=== PATIENT | male | born 1985 | race Caucasian/White ===

== ENCOUNTER 2016-05-30 13:50 | Inpatient (IN) | payer OTHER ==
[~2016-05-30 13:50] MED LIST: NALOXONE HCL 2 MG/2 ML SYR IVP ONE
--- NOTE | 2016-05-30 14:06 | EDPHY ---
HPI/HX/ROS/PE/MDM Narrative: CHIEF COMPLAINT: Cardiac arrest HPI: The patient is an estimated 31 y/o male arriving via EMS in cardiac arrest after he was found down by his roommates. Roommates told EMS they did not know how long he was down for and suspect possible cocaine or heroin use. They confirmed he used cocaine last night. No other history is known. He was apneic and pulseless on scene. EMS initiated CPR, intubated, and administered 3 rounds of epinephrine and 2mg IO Narcan en route. No change in patient condition during transport. REVIEW OF SYSTEMS: Unobtainable due to patient condition PMH: Anxiety SOCIAL HISTORY: Drug abuse. Lives in [place]. Prior medical records reviewed including multiple urgent care visits over the last 2 years. PHYSICAL EXAM: General:Patient is unconscious, GCS 3, CPR in progress. ENT:Pupils are fixed and dilated. ET tube in place. No visible trauma Neck: Normal inspection. C-collar in place. Respiratory: Breath sounds present bilaterally with assisted ventilation. Cardiovascular: Initially pulseless, then palpable femoral pulses in 20s, then 70s. Abdomen:No visible trauma Back: deferred Skin: Dooley face. No rash. Warm and dry. Extremities: Normal appearance. Neuro: GCS 3. ED Course: 1350: Met EMS in ambulance bay and took report. Patient was found down by roommate for unknown down time with suspected cocaine and/or heroin use. Arrives with CPR in progress. EMS intubated and administered 3 rounds epinephrine, 2mg Narcan. 1351: Pupils fixed and dilated. slow femoral pulse palpable, disorganized rhythm on monitor 1352: irregular HR 76. EKG, chest x-ray, cardiac meds ordered. 1353: Left tibial IO placed. Bicarb administered. Cardiac ultrasound in progress. Continues to have good femoral pulse. 1354: 2mg IV Narcan, and 1mg IV Atropine administered. 1355: No pericardial effusion, possible RV dilation on bedside US. Echo ordered , however they will be delayed as they are not in-house on the weekends. 1357: The 12 lead EKG was interpreted by myself. Irregular rhythm rate 77, ST depression in anterior and lateral leads likely ischemic. See hard copy and/or "tracemaster" electronic copy for interpretation. 1358: Automatic BP 55/30, 39%, HR 75. Good breath sounds bilaterally with current tube placement. RT is adjusting tube. 18g peripheral IV placed right AC. 1400: Manual BP is 68/palp. 1402: Chest x-ray shows tube in high position. RT will advance tube. Radiologist read reports 10cm above cindy. Study: Chest x-ray Indication: Cardiac arrest, intubation Results: Chest x-ray was obtained. The results of the study are 1. High positioned ET tube. Recommend repositioning. Comment: The results were immediately called to the Emergency marking clerk. He plans to convey results to Dr. Cori conte. 2. Right upper lobe aspiration versus contusion versus asymmetric pulmonary edema. The study was read by the radiologist, Dr. Klein. I viewed the images myself on the PACS system. 1403: Pupils remained fixed and dilated. 1405: Pulse briefly dropped to 40s. 1mg epinephrine administered. Plan for IV dopamine drip, SpO2 64%, CO2 38, BP 89/45. Patient has received 1L IV NS so far. 2L pending. 1407: Consulted Dr. Alejandro, patient registration supervisor. 1410: NG tube in progress. 1417: Repeat chest x-ray to review new tube placement. Study: Chest x-ray Indication: Cardiac arrest, intubation Results: Chest x-ray was obtained. The results of the study are 1. Repositioned ET tube is now in good position. 2. Well-positioned esophagogastric tube. 3. Right upper lobe aspiration versus asymmetric pulmonary edema is unchanged. The study was read by the radiologist, Dr. Klein. I viewed the images myself on the PACS system. 1417: BP 46/24, SpO2 86%, HR 75. Femoral pulse remains strong. 2nd amp bicarb ordered. 1419: IV Levophed and bicarb administered. Blood gas ordered. 1425: BP 52/28, HR 80, SpO2 84%. 1426: The 12 lead EKG was interpreted by myself. See hard copy and/or "tracemaster" electronic copy for interpretation. 1427: Echo at bedside. 1428: Core temp off urine is 30.6C. Levophed dose increased. 1430: BP 63/29, SpO2 89%, HR 82 1431: Dr. Cartwright, aircraft landing gear inspector, at bedside. 1445: Dr. Polo, hospitalist at bedside. BP 76/37, SpO2 96%, HR 84. Dr. Polo requests central access prior to moving him upstairs. Plan for ThermaGuard so we can warm patient to appropriate temperature for HACA protocol. 1458: Several abnormal lab values. ABGpH is low at 6.73 and pCO2 elevated at 83. 1510: BP 95/46. 1510: Procedure: Ultrasound guided central line. Indication: post resuscitation, hypothermic, HACA protocol. Using the linear probe covered in a sterile sheath, a short axis of the right femoral vein was obtained. The vein was completely compressible and was identified as separate from the adjacent non-compressible arterial structure. Under real-time guidance, the introducer needle was observed up to the vein, and then punctured it. Pictures are apart of the database. Consent implied due to patient condition. A timeout was observed. Full maximal sterile barrier technique was used including cap, gown, sterile gloves, large sheet, hand washing and chlorhexidine prep. The area was anesthetized with 1% lidocaine. A 9 Gabonese triple lumen ThermaGuard was placed in the right femoral vein using standard Seldinger technique. There were no complications. Blood return low pressure, dark blood. Patient tolerated procedure well. The procedure was performed by myself, Dr. Miller. 1540: BGL 44, 25g IV D50 administered. ECHOCARDIOGRAPHY: Indication: chest pain,SOB Procedure: Limited transthoracic 2D echocardiogram. A limited transthoracic echocardiogram was performed by the echocardiogram technologists and interpreted by ___. Limited transthoracic echocardiogram: The pericardium was visualized and found to be negative for pericardial fluid. Cardiac activity and EF was normal. No obvious structural or valve abnormalities. Impression: I spent a total of 100 minutes of critical care time including but not limited to obtaining history, performing a physical exam, ordering interventions and the bedside monitoring of those interventions, collecting and interpreting tests and discussion with consultants but not including time spent performing procedures. MDM: This patient presents status post cardiac arrest with evidence of severe brain anoxia, hypotension, and hypothermia. The underlying etiology is presumably drug overdose although this cannot be confirmed at this time.He will be admitted to the care of Dr. Polo and Dr. Cartwright. - Data Points Laboratory Results: Laboratory Results 05/30/16 14:00 05/30/16 14:00 05/30/16 05/30/16 05/30/16 14:28 14:00 14:00 WBC RBC Hgb POC Hgb Hct POC Hct MCV MCH MCHC RDW Plt Count MPV Neut % (Auto) Lymph % (Auto) Runnels % (Auto) Eos % (Auto) Baso % (Auto) Nucleat RBC Rel Count Absolute Neuts (auto) Absolute Lymphs (auto) Absolute Monos (auto) Absolute Eos (auto) Absolute Basos (auto) Absolute Nucleated RBC Immature Gran % Seg Neutrophils % Band Neutrophils % Lymphocytes % Monocytes % Metamyelocytes % Immature Gran # Absolute Seg Neuts Absolute Band Neuts Absolute Lymphocytes Absolute Monocytes Absolute Metamyelocyte RBC/WBC/PLT Morphology Atypical Lymphocytes Platelet Estimate Smear Review By PT 17.3 SEC H SEC (12.0-15.0) INR 1.42 H (0.83-1.16) APTT 41.1 SEC H SEC (23.0-38.0) Puncture Site RIGHT RADIAL Patient Temperature 31.6 DEGREES DEGREES pCO2 83 mmHg H* mmHg (34-38) pO2 53 mmHg L mmHg (65-75) Total CO2 15 mEq/L L mEq/L (23-27) ABG pH 6.73 L* (7.35-7.45) ABG PO2/FiO2 Ratio 53 RATIO RATIO ABG O2 Saturation 79 % L % (92-95) ABG Base Excess -28.6 mEq/L L mEq/L (-2.5-2.5) O2 Concentration % 100 % % (0-100) Respiration Rate 18 Set Respiration Rate 18 Assist Control YES Tidal Volume 700 PEEP 10 POC Sodium Sodium 149 mEq/L H mEq/L (134-144) POC Potassium Potassium 5.9 mEq/L H mEq/L (3.5-5.2) POC Chloride Chloride 102 mEq/L mEq/L (97-110) Carbon Dioxide 17 mEq/l L mEq/l (22-31) Bicarbonate 12 mEq/L L mEq/L (22-26) Anion Gap 30 mEq/L H mEq/L (8-16) POC BUN BUN 17 mg/dL mg/dL (7-23) Creatinine 2.7 mg/dL H mg/dL (0.7-1.3) POC Creatinine Estimated GFR 28 Glucose 44 mg/dL L mg/dL (70-100) POC Glucose Calcium 9.0 mg/dL mg/dL (8.5-10.4) Creatine Kinase 108 IU/L IU/L (0-224) Troponin I 0.222 ng/mL H ng/mL (0-0.034) 05/30/16 05/30/16 14:00 13:52 WBC 22.67 10^3/uL H 10^3/uL (3.80-9.50) RBC 4.94 10^6/uL 10^6/uL (4.40-6.38) Hgb 15.1 g/dL g/dL (13.7-17.5) POC Hgb 16.0 gm/dL gm/dL (14.5-17.3) Hct 50.4 % % (40.0-51.0) POC Hct 47 % % (42.8-50.6) MCV 102.0 fL H fL (81.5-99.8) MCH 30.6 pg pg (27.9-34.1) MCHC 30.0 g/dL L g/dL (32.4-36.7) RDW 13.1 % % (11.5-15.2) Plt Count 355 10^3/uL 10^3/uL (150-400) MPV 11.2 fL fL (8.7-11.7) Neut % (Auto) Not Reported Lymph % (Auto) Not Reported Runnels % (Auto) Not Reported Eos % (Auto) Not Reported Baso % (Auto) Not Reported Nucleat RBC Rel Count 0.1 % % (0.0-0.2) Absolute Neuts (auto) Not Reported Absolute Lymphs (auto) Not Reported Absolute Monos (auto) Not Reported Absolute Eos (auto) Not Reported Absolute Basos (auto) Not Reported Absolute Nucleated RBC 0.02 10^3/uL H 10^3/uL (0-0.01) Immature Gran % Not Reported Seg Neutrophils % 35 % % Band Neutrophils % 22 % % Lymphocytes % 24 % % Monocytes % 10 % % Metamyelocytes % 9 % % Immature Gran # Not Reported Absolute Seg Neuts 7.93 10^/uL H 10^/uL (1.70-6.50) Absolute Band Neuts 4.99 10^3/uL H 10^3/uL (0.00-0.70) Absolute Lymphocytes 5.44 10^3/uL H 10^3/uL (1.00-3.00) Absolute Monocytes 2.27 10^3/uL H 10^3/uL (0.30-0.80) Absolute Metamyelocyte 2.04 10^3/mL H 10^3/mL (0.00-0.00) RBC/WBC/PLT Morphology NORMAL (NORMAL) Atypical Lymphocytes 1+ H Platelet Estimate ADEQUATE (ADEQ) Smear Review By Pending PT INR APTT Puncture Site Patient Temperature pCO2 pO2 Total CO2 ABG pH ABG PO2/FiO2 Ratio ABG O2 Saturation ABG Base Excess O2 Concentration % Respiration Rate Set Respiration Rate Assist Control Tidal Volume PEEP POC Sodium 145 mEq/L H mEq/L (134-144) Sodium POC Potassium 6.0 mEq/L H mEq/L (3.3-5.0) Potassium POC Chloride 106 mEq/L mEq/L (96-108) Chloride Carbon Dioxide Bicarbonate Anion Gap POC BUN 29 mg/dL H mg/dL (7-23) BUN Creatinine POC Creatinine 2.2 mg/dL H mg/dL (0.8-1.5) Estimated GFR Glucose POC Glucose 62 mg/dL L mg/dL (70-100) Calcium Creatine Kinase Troponin I Medications Given: Discontinued Medications Atropine Sulfate (Atropine 1 Mg/10 Ml Syringe) 1 mg IVP EDNOW ONE Stop: 05/30/16 14:30 Last Admin: 05/30/16 13:54 Dose: 1 mg Epinephrine HCl (Epinephrine) 1 mg IVP EDNOW ONE Stop: 05/30/16 14:30 Last Admin: 05/30/16 14:05 Dose: 1 mg Norepinephrine 4 mg/ Dextrose 500 mls @ 0 mls/hr IV ONCE ONE; Per Protocol PRN Reason: Protocol Stop: 05/30/16 14:31 Last Admin: 05/30/16 14:18 Dose: 500 mls Dopamine HCl/Dextrose (Dopamine 1600 Mcg/Ml (Premix)) 250 mls @ 0 mls/hr IV EDNOW ONE; Titrate PRN Reason: Protocol Stop: 05/30/16 14:25 Last Admin: 05/30/16 14:11 Dose: 250 mls Naloxone HCl (Narcan) 2 mg IVP EDNOW ONE Stop: 05/30/16 14:43 Last Admin: 05/30/16 13:54 Dose: 2 mg Sodium Bicarbonate (Sodium Bicarbonate) 50 meq IVP EDNOW ONE Stop: 05/30/16 14:29 Last Admin: 05/30/16 13:54 Dose: 50 meq Sodium Bicarbonate (Sodium Bicarbonate) 50 meq IVP ONCE ONE Stop: 05/30/16 14:30 Last Admin: 05/30/16 14:18 Dose: 50 meq Point of Care Test Results: 05/30/16 13:52 POC Sodium 145 H POC Potassium 6.0 H POC Chloride 106 POC BUN 29 H POC Creatinine 2.2 H POC Glucose 62 L General Initial Vital Signs: Initial Vital Signs Heart Rate 0 L 05/30/16 13:50 Respiratory Rate 20 05/30/16 13:50 O2 Sat (%) 30 L 05/30/16 13:50 O2 Delivery Mode Ventilator O2 (L/minute) 100 Allergies/Adverse Reactions: No Known Allergies Allergy (Verified 05/25/15 09:08) Home Medications: Medication Instructions Recorded Unobtainable 05/30/16 Departure - Departure Disposition: [facility] Inpatient Acute Clinical Impression: Cardiac arrest Condition: Critical Report Scribed for: Nick Miller Report Scribed by: Zahraa Solares Date of Report: 05/30/16 Time of Report: 13:47 Physician Review and Approval Statement: Portions of this note were transcribed by an ED scribe. I personally performed the history, physical exam, and medical decision making; and confirm the accuracy of the information in the transcribed note.
[2016-05-30] MEDS ORDERED: SODIUM BICARBONATE 50 MEQ/50 ML SYR IVP ONE ×3 (14:28→19:56)
[2016-05-30] MEDS ORDERED: ATROPINE SULFATE 1 MG/10 ML SYR IVP ONE (14:29)
[2016-05-30] MEDS ORDERED: EPINEPHrine 1 MG/10 ML SYR IVP ONE (14:29)
[2016-05-30] MEDS ORDERED: NALOXONE HCL 2 MG in D5W 500 ML IV SCH (14:30)
[2016-05-30] MEDS ORDERED: NOREPINEPHRINE BITARTRATE 4 MG in D5W 500 ML IV ONE (14:30)
[2016-05-30 14:32] LABS: ABSOLUTE NRBC COUNT 0.02 10^3/uL (0-0.01); ADD DIFF? YES; ADD MORPH? NO; ADD SCAN? YES; FRAGMENT RBC FLAG 0 (0-99); HEMATOCRIT 50.4 % (40.0-51.0); HEMOGLOBIN 15.1 g/dL (13.7-17.5); LEFT SHIFT FLG 50 (0-99); LIPEMIA HEMOLYSIS FLAG 80 (0-99); MEAN CELL HEMOGLOBIN 30.6 pg (27.9-34.1); MEAN PLATELET VOLUME 11.2 fL (8.7-11.7); NRBC-AUTO% 0.1 % (0.0-0.2); PLATELET CLUMPS FLAG 20 (0-99); PLATELET COUNT 355 10^3/uL (150-400); RED BLOOD CELL COUNT 4.94 10^6/uL (4.40-6.38); RED CELL DISTRIBUTION WIDTH 13.1 % (11.5-15.2)
[2016-05-30 14:33] LABS: ATYPICAL LYMPHOCYTE FLAG 120 (0-99)
[2016-05-30 14:42] LABS: INR 1.42 (0.83-1.16); PROTIME(PATIENT) 17.3 SEC (12.0-15.0)
[2016-05-30] MEDS ORDERED: NALOXONE HCL 0.4 MG/ML INJ IVP ONE (14:42)
[2016-05-30 14:43] LABS: APTT 41.1 SEC (23.0-38.0)
[2016-05-30 14:47] LABS: BASE EXCESS -28.6 mEq/L (-2.5-2.5); BICARBONATE 12 mEq/L (22-26); MEASURED OXYGEN SATURATION 79 % (92-95); PO2 53 mmHg (65-75); TCO2 15 mEq/L (23-27)
[2016-05-30 14:50] LABS: PCO2 83 mmHg (34-38)
[2016-05-30 14:51] LABS: ASSIST CONTROL YES; O2 CONCENTRATIION 100 % (0-100); P/F RATIO 53 RATIO; TOTAL RATE 18
[2016-05-30 14:58] LABS: ANION GAP 30 mEq/L (8-16); CARBON DIOXIDE 17 mEq/l (22-31); CHLORIDE 102 mEq/L (97-110); CREATININE 2.7 mg/dL (0.7-1.3); GLOMERULAR FILTRATION RATE 28; GLUCOSE 44 mg/dL (70-100); POTASSIUM 5.9 mEq/L (3.5-5.2); SODIUM 149 mEq/L (134-144)
[2016-05-30 15:00] LABS: SCAN POSITIVE
[2016-05-30] MEDS ORDERED: ONDANSETRON 4 MG/2 ML VIAL IVP PRN (15:02)
[2016-05-30 15:03] LABS: PLATELET ESTIMATE ADEQUATE (ADEQ)
[2016-05-30 15:04] LABS: TROPONIN I 0.222 ng/mL (0-0.034)
[2016-05-30] MEDS ORDERED: NS 1,000 ML IV ONE ×4 (15:25→16:20)
[2016-05-30 15:42] LABS: BASE EXCESS -23.4 mEq/L (-2.5-2.5); BICARBONATE 10 mEq/L (22-26); MEASURED OXYGEN SATURATION 98 % (92-95); PCO2 36 mmHg (34-38); PO2 173 mmHg (65-75); TCO2 11 mEq/L (23-27)
[2016-05-30 15:48] LABS: ASSIST CONTROL YES
[2016-05-30 15:50] LABS: O2 CONCENTRATIION 100 % (0-100); P/F RATIO 173 RATIO
[2016-05-30 15:51] LABS: TOTAL RATE 26
--- NOTE | 2016-05-30 16:05 | GCON ---
[f rep st] CONSULTATION SECURITY INCIDENT RESPONSE SPECIALIST CONSULTATION REASON FOR ADMISSION: Found down, cardiac arrest. HISTORY OF PRESENT ILLNESS: The patient is a 30-year-old male with a past medical history of known heroin drug abuse. He was found by his roommate after being down for an unknown amount of time. No other history was known. On the scene, when EMS arrived, he was pulseless and apneic. CPR was beg un and he was subsequently intubated and was given epi and Narcan in route. He was subsequently res uscitated, though he is markedly hypotensive. He is in a coma. No other history is available at this time. PAST MEDICAL HISTORY: Unknown. PAST SURGICAL HISTORY: Unknown. ALLERGIES: Unknown. SOCIAL HISTORY: Other than heroin use and possible cocaine use, no other history is available. PHYSICAL EXAM: VITAL SIGNS: Blood pressure is 82/40, pulse of 75, respirations are 16. GENERAL: He is a well-developed, well-nourished, 30-year-old white male, who is obtunded, on mechanical venti lation. HEENT: Pupils are fixed and dilated. Throat: Endotracheal tube is in good position. NEC K: Supple. No cervical adenopathy. HEART: Regular rate and rhythm without murmurs, rubs, gallops . LUNGS: Reveal a few bibasilar crackles, but no wheeze. ABDOMEN: Soft, nontender. Bowel sounds present in all 4 quadrants. EXTREMITIES: No clubbing, cyanosis, or edema. LABORATORIES: Hemoglobin 16, hematocrit 47. INR 1.42. Sodium 145, potassium 6.0, chloride 106, CO 2 is pending, BUN 29, creatinine 2.2, glucose is 62. Chest x-ray shows endotracheal tube is a littl e high, there is a right upper lobe infiltrate, likely aspiration. IMPRESSION: 1. Status post cardiac arrest. 2. Known heroin abuse. 3. Coma. 4. Right upper lobe pneumonia, likely aspiration. 5. Shock. 6. Acute renal failure. 7. Incomplete database. RECOMMENDATIONS: 1. The patient will be admitted to the intensive care unit. 2. We will continue mechanical ventilation. 3. We will start per protocol. 4. Aggressive hydration, as well as IV pressors. 5. We will start antibiotics. 6. DVT and PE prophylaxis. 7. Stress ulcer prophylaxis. 8. Prognosis is grim for meaningful recovery. /[id number]/MODL
--- NOTE | 2016-05-30 16:09 | GHP ---
[f rep st] HISTORY AND PHYSICAL DATE OF ADMISSION: 05/30/2016 HISTORY OF PRESENT ILLNESS: The patient is a 30-year-old gentleman with a history of heroin use who was found down by his roommates today. He had been down for an unknown period of time. He was not breathing. 911 was called. CPR was initiated. He was apneic and pulseless. It sounds like it wa s EMS who initiated CPR and they intubated him. He had 3 rounds of epinephrine and 2 mg intraosseou s Narcan en route. There were no changes in the patient's condition during transport. History conf irms that he used cocaine last evening. In the emergency department he is unresponsive despite no sedation and intubation and further histor y is unknown. REVIEW OF SYSTEMS: Complete 10-point review of systems is unable to be conducted given his unrespon sive status. PAST MEDICAL HISTORY: Drug abuse, otherwise unknown. ALLERGIES: No known drug allergies, unknown. HOME MEDICATIONS: Unknown. FAMILY HISTORY: Unknown. PHYSICAL EXAM: VITAL SIGNS: Temp 31.6, blood pressure 78/39, pulse 84, breathing 20 times a minute , 97% on 100% FiO2. GENERAL: He is intubated, unresponsive. HEENT: Pupils are fixed at about 5 m m and dilated. Sclerae are anicteric. His oropharynx has an ET tube in. NECK: Supple. LUNGS: C lear with auscultation anterolaterally. There are some rhonchi in the right upper lobe. HEART: S1 , S2, irregularly irregular. ABDOMEN: Soft. There is no rebound or guarding. Bowel sounds are no rmal. LOWER EXTREMITIES: Without edema. Calves are nontender. SKIN: Multiple tattoos, but no ra shes. NEUROLOGIC: Notable for an unresponsive patient with fixed and dilated pupils. LABS: PH of 6.7 with a pCO2 of 83, a PO2 of 53 and a bicarb of 15. Point of care hematocrit is 47. INR is 1.4. Sodium is 149, potassium 5.9, chloride 102, bicarb 17, BUN 17, creatinine 2.7, glucos e of 44. Troponin 0.22. EKG interpreted by me, there are 2, one done at 1:57 p.m. shows atrial fib rillation with ST depressions in the inferior leads as well as across the precordium and PVCs. Ther e are no J waves. A repeat EKG shows atrial fibrillation at 82 with normal axis. There are inferio r ST depressions in lead II, III, and F as well as lead V5, V6. Again, no J waves. Discussed the case with Dr. Elmo Miller, Dr. Yusef Cartwright. Admission chest x-ray shows right upper lobe aspiration. ASSESSMENT AND PLAN: A 30-year-old gentleman found down with likely heroin overdose and presentatio n concerning for severe anoxic brain injury. 1. Acidosis: This is a combined respiratory and metabolic acidosis. He is intubated. We will rep eat an ABG here in the coming minutes to assess the impression on his pCO2. I would expect his meta bolic acidosis to slightly improve and his respiratory acidosis to markedly improve with mechanical ventilation and resuscitation. 2. Question sepsis: I suspect the driving issue here is hypoventilation from narcotic overdose plu s the sepsis. He does have markers consistent with this fluid bolus, etcetera. 3. Right upper lobe aspiration: Started on Zosyn. 4. Anoxic brain injury: The patient is hypothermic. We will allow him to warm slowly. It is not clear that he is eligible for the hypothermia after cardiac arrest (HACA) protocol on the basis of h is presentation with hypothermia. We will allow him to warm to ambient temperature. 5. Prophylaxis: The patient is moderate to high risk. I will do use SCDs for now. His NG tube carver s what appears to be some blood in it. Will follow. 6. Question pulmonary embolism: He has inferior ST depressions that could be consistent with pulmo nary embolism. Right now he has acute kidney injury. We will hold off on systemic anticoagulation and follow. We will wait for an echocardiogram. 7. Acute kidney injury: I suspect this is secondary to poor p.o. intake. We will follow. I suspe ct this will improve with resuscitation. Will repeat labs today. 8. Hypotension: This is likely secondary to severe acidosis. Will follow. He is currently on pre ssors. 9. Code. He is full. 10. Contact: We have no family at this point in time. Will do our best to get in touch with them. 11. Disposition: ICU. /[id number]/MODL
[2016-05-30] MEDS: LORazepam 2 MG/ML INJ IVP PRN (16:18)
[2016-05-30] MEDS ORDERED: NS 1,000 ML IV SCH (16:20)
[2016-05-30] MEDS ORDERED: D50W 25 GM/50 ML SYR IVP ONE ×2 (16:20→19:56)
[2016-05-30] MEDS ORDERED: NS 250 ML IV PRN (16:20)
[2016-05-30] MEDS ORDERED: fentaNYL 100 MCG/2 ML INJ IVP ONE (16:20)
[2016-05-30] MEDS ORDERED: PROTOCOL MAGNESIUM 1 DOSE IV PRN (16:20)
[2016-05-30] MEDS ORDERED: PROPOFOL/EMULSION 50 ML IV SCH (16:20)
[2016-05-30] MEDS ORDERED: niCARdipine/NACL 200 ML IV PRN (16:20)
[2016-05-30] MEDS ORDERED: USE *INSINTENS FOR HYPOGLYCEMIA ORDERS MISC ONE (16:20)
[2016-05-30] MEDS ORDERED: NARCOTIC DRIP BAG-TOTAL ALL TYPES IV PRN (16:20)
[2016-05-30] MEDS ORDERED: MIDAZOLAM 2 MG/2 ML VIAL IVP PRN (16:20)
[2016-05-30] MEDS ORDERED: PROTOCOL POTASSIUM 1 DOSE MISC PRN (16:20)
[2016-05-30] MEDS: levETIRAcetam 500 MG in NS 100 ML IV SCH (16:33)
[2016-05-30] MEDS: PROPOFOL/EMULSION 100 ML IV SCH (16:37)
[2016-05-30] MEDS: fentaNYL/NACL 100 ML IV SCH (17:16)
[2016-05-30] MEDS: VECURONIUM BROMIDE 50 MG in D5W 50 ML IV SCH (17:40)
[2016-05-30] MEDS: PIPERACILLIN/TAZO 3.375 GM/DEX 50 ML IV SCH (18:46)
[2016-05-30 19:46] LABS: ANION GAP 15 mEq/L (8-16); CALCIUM 6.4 mg/dL (8.5-10.4); CARBON DIOXIDE 16 mEq/l (22-31); CHLORIDE 107 mEq/L (97-110); CREATININE 2.2 mg/dL (0.7-1.3); GLOMERULAR FILTRATION RATE 36; GLUCOSE 158 mg/dL (70-100); SODIUM 138 mEq/L (134-144)
[2016-05-30 19:50] LABS: POTASSIUM 6.5 mEq/L (3.5-5.2)
[2016-05-30] MEDS ORDERED: CALCIUM CHLORIDE 1 GM/10 ML INJ IV ONE (19:56)
[2016-05-30] MEDS ORDERED: D25W 2.5 GM/10 ML SYR IVP ONE (19:56)
[2016-05-30] MEDS ORDERED: SODIUM BICARBONATE 50 MEQ/50 ML SYR ONE (19:56)
[2016-05-30] MEDS ORDERED: DOPamine/DEXTROSE/250 ML BAG IV ONE (19:56)
--- NOTE | 2016-05-30 20:02 | SOAPPROG ---
SOAP Progress Note Assessment/Plan: Assessment: I was asked to place an arterial line. CHD sterile prep. Left femoral artery id with ultrasound. 20g arterial line placed easily, sutured in place. Sterile dressing applied. No complications Plan: 05/30/16 20:00 Subjective: .. Objective: Vital Signs Temp Pulse Resp BP Pulse Ox 33.1 C L 8 L 24 H 90/15 L 97 05/30/16 18:00 05/30/16 18:00 05/30/16 18:00 05/30/16 18:00 05/30/16 18:00 Laboratory Results 05/30/16 19:20 05/29/16 05/30/16 05/31/16 05:59 05:59 05:59 Intake Total 5272.6 Output Total 540 Balance 4732.6 PT 17.3 SEC (12.0-15.0) H 05/30/16 14:00 INR 1.42 (0.83-1.16) H 05/30/16 14:00 ICD10 Worksheet Patient Problems: Problems Problem Status Onset Cardiac arrest Acute
[2016-05-30] MEDS ORDERED: D50W 25 GM/50 ML SYR IVP PRN (20:03)
[2016-05-30 20:16] LABS: ASSIST CONTROL YES; BASE EXCESS -12.1 mEq/L (-2.5-2.5); BICARBONATE 14 mEq/L (22-26); MEASURED OXYGEN SATURATION 91 % (92-95); PCO2 27 mmHg (34-38); PO2 51 mmHg (65-75); TCO2 15 mEq/L (23-27)
[2016-05-30 20:17] LABS: END TIDAL CO2 22; O2 CONCENTRATIION 60 % (0-100); P/F RATIO 85 RATIO; TOTAL RATE 24
[2016-05-30] MEDS: PANTOPRAZOLE SODIUM 40 MG in NS 100 ML IV SCH (20:29)
[2016-05-30] MEDS: CHLORHEXIDINE GLUCONATE 15 ML UDL PO SCH (20:29)
[2016-05-30] MEDS ORDERED: INSULIN REGULAR HUMAN 100 UNIT in NS 100 ML IV SCH (20:30)
[2016-05-30] MEDS ORDERED: levETIRAcetam 500 MG in NS 100 ML IV SCH (21:00)
[2016-05-30] MEDS ORDERED: FAMOTIDINE 20 MG/NACL 50 ML IV SCH (21:00)
[2016-05-30 22:13] LABS: BASE EXCESS -8.6 mEq/L (-2.5-2.5); BICARBONATE 17 mEq/L (22-26); MEASURED OXYGEN SATURATION 97 % (92-95); PCO2 30 mmHg (34-38); PO2 77 mmHg (65-75); TCO2 18 mEq/L (23-27)
[2016-05-30 22:15] LABS: ASSIST CONTROL YES
[2016-05-30] MEDS: NOREPINEPHRINE BITARTRATE 4 MG in D5W 500 ML IV PRN (22:15)
[2016-05-30 22:16] LABS: END TIDAL CO2 27; O2 CONCENTRATIION 80 % (0-100); P/F RATIO 96 RATIO; TOTAL RATE 20
[2016-05-30 22:35] LABS: ADD DIFF? YES; ADD MORPH? NO; ADD SCAN? NO; ATYPICAL LYMPHOCYTE FLAG 30 (0-99); FRAGMENT RBC FLAG 0 (0-99); HEMATOCRIT 43.8 % (40.0-51.0); HEMOGLOBIN 14.7 g/dL (13.7-17.5); LEFT SHIFT FLG 70 (0-99); LIPEMIA HEMOLYSIS FLAG 80 (0-99); MEAN CELL HEMOGLOBIN 30.6 pg (27.9-34.1); MEAN CELL HEMOGLOBIN CONCENTR. 33.6 g/dL (32.4-36.7); MEAN CELL VOLUME 91.1 fL (81.5-99.8); MEAN PLATELET VOLUME 10.2 fL (8.7-11.7); PLATELET CLUMPS FLAG 10 (0-99); PLATELET COUNT 218 10^3/uL (150-400); RED BLOOD CELL COUNT 4.81 10^6/uL (4.40-6.38); RED CELL DISTRIBUTION WIDTH 13.2 % (11.5-15.2)
[2016-05-30 22:36] LABS: BASE EXCESS -8.3 mEq/L (-2.5-2.5); BICARBONATE 17 mEq/L (22-26); IONIZED CALCIUM 0.97 MMOL/L (1.12-1.30); MEASURED OXYGEN SATURATION 99 % (92-95); PCO2 34 mmHg (34-38); PO2 152 mmHg (65-75); TCO2 18 mEq/L (23-27)
[2016-05-30 22:45] LABS: ALBUMIN 2.9 g/dL (3.5-5.0); ANION GAP 14 mEq/L (8-16); CALCIUM 6.1 mg/dL (8.5-10.4); CARBON DIOXIDE 16 mEq/l (22-31); CHLORIDE 108 mEq/L (97-110); CREATININE 1.9 mg/dL (0.7-1.3); GLOMERULAR FILTRATION RATE 42; GLUCOSE 203 mg/dL (70-100); MAGNESIUM 1.9 mg/dL (1.6-2.3); POTASSIUM 4.4 mEq/L (3.5-5.2); SODIUM 138 mEq/L (134-144)
[2016-05-30 22:57] LABS: TROPONIN I 0.421 ng/mL (0-0.034)
[2016-05-30 22:59] LABS: PHENCYCLIDINE URINE BCH < 6 ng/ml (NEGATIVE); PHENCYCLIDINE URINE BCH NEGATIVE (NEGATIVE); TETRAHYDROCANNABINOL URINE < 5 ng/mL (NEGATIVE); TETRAHYDROCANNABINOL URINE NEGATIVE (NEGATIVE)
[2016-05-30 23:22] LABS: ASPARTATE AMINOTRANSFERASE 2839 IU/L (17-59)
[2016-05-30 23:26] LABS: CK-MB INTERPRETATION NEGATIVE (NEGATIVE)
[2016-05-30 23:30] LABS: ECHINOCYTES 1+; PLATELET ESTIMATE ADEQUATE (ADEQ)
[2016-05-31] MEDS: PIPERACILLIN/TAZO 3.375 GM/DEX 50 ML IV SCH ×4 (00:12→20:32)
[2016-05-31] MEDS: NS 1,000 ML IV SCH ×3 (02:00→14:18)
[2016-05-31] MEDS: PROPOFOL/EMULSION 100 ML IV SCH (02:19)
[2016-05-31 02:32] LABS: MAGNESIUM 1.9 mg/dL (1.6-2.3); POTASSIUM 4.2 mEq/L (3.5-5.2)
[2016-05-31] MEDS: VECURONIUM BROMIDE 50 MG in D5W 50 ML IV SCH ×2 (04:07→18:48)
[2016-05-31] MEDS: NOREPINEPHRINE BITARTRATE 4 MG in D5W 500 ML IV PRN ×2 (04:23→10:50)
--- NOTE | 2016-05-31 05:20 | PDINTPN ---
Box Finisher Progress Note Assessment/Plan: Assessment/Plan: * S/P Cardiac arrest-unclear how long down * Resp failure-stable on Vent * HACA-per protocol -rewarming to begin at 1600 * Asp pna -cont zosyn * Shock * Heroin/cocaine abuse * Acute renal failure-improved * Sedation-now paralyzed * Sz-on benzos and keppra * Probable anoxic brain injury -neuro to see tomorrow * Acute liver failure/elevated transaminase 40 min critical care time spent with patient Case discussed with nurse and RT Subjective: Sedated and paralyzed Objective: Vital Signs Temp Pulse Resp BP Pulse Ox 33 C L 66 18 111/76 100 05/31/16 05:00 05/31/16 05:00 05/31/16 05:00 05/31/16 05:00 05/31/16 05:00 Laboratory Results 05/30/16 22:20 05/31/16 02:10 05/29/16 05/30/16 05/31/16 05:59 05:59 05:59 Intake Total 5272.6 Output Total 1240 Balance 4032.6 PT 17.3 SEC (12.0-15.0) H 05/30/16 14:00 INR 1.42 (0.83-1.16) H 05/30/16 14:00 - Time Spent With Patient Time Spent With Patient: 40 Physical Exam - Physical Exam General Appearance: other (sedated and paralyzed), No alert EENT: ET tube, No PERRL/EOMI (pupils midsize, sluggish) Neck: non-tender, full range of motion, supple, normal inspection Respiratory: crackles (few), No accessory muscle use, No wheezing Cardiac/Chest: normal peripheral pulses, regular rate, rhythm Peripheral Pulses: 2+: carotid (R), carotid (L), femoral (R), femoral (L), dorsalis-pedis (R), dorsalis-pedis (L) Abdomen: normal bowel sounds, non-tender, soft Male Genitalia: deferred Rectal: deferred Skin: normal color, warm/dry ICD10 Worksheet Patient Problems: Problems Problem Status Onset Cardiac arrest Acute
[2016-05-31 06:19] LABS: ADD DIFF? YES; ADD MORPH? NO; ADD SCAN? NO; ATYPICAL LYMPHOCYTE FLAG 30 (0-99); FRAGMENT RBC FLAG 0 (0-99); HEMATOCRIT 43.8 % (40.0-51.0); HEMOGLOBIN 14.7 g/dL (13.7-17.5); LEFT SHIFT FLG 80 (0-99); LIPEMIA HEMOLYSIS FLAG 80 (0-99); MEAN CELL HEMOGLOBIN 30.2 pg (27.9-34.1); MEAN CELL HEMOGLOBIN CONCENTR. 33.6 g/dL (32.4-36.7); MEAN CELL VOLUME 90.1 fL (81.5-99.8); PLATELET CLUMPS FLAG 20 (0-99); PLATELET COUNT 229 10^3/uL (150-400); RED BLOOD CELL COUNT 4.86 10^6/uL (4.40-6.38); RED CELL DISTRIBUTION WIDTH 13.2 % (11.5-15.2)
[2016-05-31 06:24] LABS: BASE EXCESS -9.9 mEq/L (-2.5-2.5); BICARBONATE 17 mEq/L (22-26); MEASURED OXYGEN SATURATION 99 % (92-95); PCO2 32 mmHg (34-38); PO2 181 mmHg (65-75); TCO2 18 mEq/L (23-27)
[2016-05-31 06:30] LABS: ASSIST CONTROL YES
[2016-05-31 06:31] LABS: END TIDAL CO2 30; O2 CONCENTRATIION 75 % (0-100); P/F RATIO 241 RATIO; TOTAL RATE 18
[2016-05-31 06:49] LABS: ALBUMIN 2.4 g/dL (3.5-5.0); ALKALINE PHOSPHATASE 66 IU/L (38-126); ANION GAP 9 mEq/L (8-16); BILIRUBIN,TOTAL 0.9 mg/dL (0.1-1.4); CALCIUM 6.6 mg/dL (8.5-10.4); CARBON DIOXIDE 16 mEq/l (22-31); CHLORIDE 110 mEq/L (97-110); GLOMERULAR FILTRATION RATE 40; GLUCOSE 123 mg/dL (70-100); MAGNESIUM 1.9 mg/dL (1.6-2.3); POTASSIUM 4.3 mEq/L (3.5-5.2); SODIUM 135 mEq/L (134-144); TOTAL PROTEIN 4.9 g/dL (6.3-8.2)
[2016-05-31 07:06] LABS: PLATELET ESTIMATE ADEQUATE (ADEQ)
[2016-05-31 07:21] LABS: ALANINE AMINOTRANSFERASE 3446 IU/L (21-72); ASPARTATE AMINOTRANSFERASE 3452 IU/L (17-59)
[2016-05-31] MEDS: PANTOPRAZOLE SODIUM 40 MG in NS 100 ML IV SCH ×2 (08:15→20:32)
[2016-05-31] MEDS: fentaNYL/NACL 100 ML IV SCH (08:32)
[2016-05-31] MEDS: CHLORHEXIDINE GLUCONATE 15 ML UDL PO SCH ×2 (08:33→20:32)
[2016-05-31] MEDS ORDERED: LIDOCAINE 1% 30 ML SDV ONE (08:37)
[2016-05-31] MEDS ORDERED: RN MUST ADD CA+ & PHOS PROTOCOL TO WORKLIST AT 36 C MISC SCH (09:00)
[2016-05-31] MEDS: levETIRAcetam 500 MG in NS 100 ML IV SCH ×2 (09:16→20:32)
[2016-05-31] MEDS ORDERED: LIDOCAINE 1% 30 ML SDV SC ONE (09:30)
[2016-05-31] MEDS: RN MUST REMOVE K+ & MG+ PROTOCOL FROM WORKLIST AT 36 C MISC SCH (09:47)
[2016-05-31] MEDS: MAINTAIN PARALYTIC,ANALGESIA,SEDATION UNTIL TEMP IS 36C MISC SCH (09:47)
[2016-05-31 10:10] LABS: ASSIST CONTROL YES; BASE EXCESS -9.9 mEq/L (-2.5-2.5); BICARBONATE 16 mEq/L (22-26); IONIZED CALCIUM 1.07 MMOL/L (1.12-1.30); MEASURED OXYGEN SATURATION 99 % (92-95); PCO2 29 mmHg (34-38); PO2 156 mmHg (65-75); TCO2 17 mEq/L (23-27)
[2016-05-31 10:11] LABS: O2 CONCENTRATIION 60 % (0-100); P/F RATIO 260 RATIO; TOTAL RATE 18
[2016-05-31 10:16] LABS: ADD DIFF? YES; ADD MORPH? NO; ADD SCAN? NO; ATYPICAL LYMPHOCYTE FLAG 30 (0-99); FRAGMENT RBC FLAG 0 (0-99); HEMATOCRIT 43.3 % (40.0-51.0); HEMOGLOBIN 14.9 g/dL (13.7-17.5); LEFT SHIFT FLG 90 (0-99); LIPEMIA HEMOLYSIS FLAG 90 (0-99); MEAN CELL HEMOGLOBIN 30.5 pg (27.9-34.1); MEAN CELL HEMOGLOBIN CONCENTR. 34.4 g/dL (32.4-36.7); MEAN CELL VOLUME 88.5 fL (81.5-99.8); MEAN PLATELET VOLUME 10.4 fL (8.7-11.7); PLATELET CLUMPS FLAG 0 (0-99); PLATELET COUNT 232 10^3/uL (150-400); RED BLOOD CELL COUNT 4.89 10^6/uL (4.40-6.38); RED CELL DISTRIBUTION WIDTH 13.2 % (11.5-15.2)
[2016-05-31 10:18] LABS: INR 1.75 (0.83-1.16); PROTIME(PATIENT) 20.5 SEC (12.0-15.0)
[2016-05-31 10:19] LABS: APTT 35.4 SEC (23.0-38.0)
[2016-05-31 10:33] LABS: ALBUMIN 2.3 g/dL (3.5-5.0); ANION GAP 9 mEq/L (8-16); BILIRUBIN,TOTAL 0.9 mg/dL (0.1-1.4); CALCIUM 6.8 mg/dL (8.5-10.4); CARBON DIOXIDE 18 mEq/l (22-31); CHLORIDE 109 mEq/L (97-110); CREATININE 2.1 mg/dL (0.7-1.3); GLOMERULAR FILTRATION RATE 38; GLUCOSE 115 mg/dL (70-100); MAGNESIUM 1.9 mg/dL (1.6-2.3); POTASSIUM 4.4 mEq/L (3.5-5.2); SODIUM 136 mEq/L (134-144)
[2016-05-31] MEDS: MIDAZOLAM HCL 50 MG in D5W 50 ML IV PRN (10:50)
[2016-05-31 11:01] LABS: PLATELET ESTIMATE ADEQUATE (ADEQ)
[2016-05-31 11:02] LABS: GIANT PLATELETS PRESENT
--- NOTE | 2016-05-31 11:46 | ECHO ---
[id number] + + [address] : : [place] [address] : : [phone] + + Adult Echocardiographic Report + -+ :Name: NICK JACKSON SStudy Date: 05/30/2016 02:39 PM BP: 63/43 mmH g: : Hospital Admission Number: [id number] : :: 1985 Gender: Male : :Age: 30 yrs Race: WH : :Reason For Study: Eval LV Fx : :History: Post Cardiac Arrest, OD : + -+ MMode/2D Measurements \T\ Calculations IVSd: 0.75 cm LVIDd: 4.0 cm FS: 45.1 % LVPWd: 1.2 cm LVIDs: 2.2 cm EDV(Teich): 70.4 ml ESV(Teich): 16.2 ml EF(Teich): 77.0 % Normal Measurement Values: + + :LVIDd (3.5-5.7cm) IVSd (0.6-1.1cm) LVPWd (0.6-1.1cm) Aortic Root (2.0-3.7cm)Left Atrium (1.5-4.0cm): :LV Vol(d) (76-115ml) LV Vol(s) (29-48ml) Ejec Fraction (50-65%)PV Carlos (0.6- 1.2m/s) TV Carlos (0.4-1.0m/s) : :MV E Carlos (0.8-1.0m/s)MV A Carlos (0.3-1.0m/s)LVOT Carlos (0.7-1.2m/s) Asc Ao Carlos ( 0.9-1.8m/s) : + + Left Ventricle The left ventricular ejection fraction is normal. Ejection Fraction = 75%. Right Ventricle The right ventricle is normal in size and function. Atria The left atrial size is normal. Mitral Valve The mitral valve is normal in structure and function. Tricuspid Valve The tricuspid valve is normal in structure and function. Aortic Valve The aortic valve opens well. There is no aortic stenosis. Great Vessels The aortic root is normal size. Pericardium/Pleural There is no pericardial effusion. Conclusion This is a limited echo to evaluate for LV Fx post cardiac arrest. Limited study for LV function post-resuscitation. The left ventricular ejection fraction is normal. Ejection Fraction = 75%. The right ventricle is normal in size and function. The left atrial size is normal. Normal appearing valvular structures. There is no pericardial effusion. Final Reading Physician: Hussain Cruz signed on 05/31/2016 11:44 AM Ordering Physician: Nick Miller Performed By: Mayo Beltran RDCS
[2016-05-31] MEDS ORDERED: MAGNESIUM SULF 1 GM/DEXTROSE 100 ML IV ONE (12:00)
[2016-05-31 12:11] LABS: CK-MB INTERPRETATION NEGATIVE (NEGATIVE)
[2016-05-31 12:36] LABS: ASPARTATE AMINOTRANSFERASE 3328 IU/L (17-59)
--- NOTE | 2016-05-31 13:17 | GCON ---
[f rep st] CONSULTATION DATE OF CONSULTATION: 05/31/2016 REFERRING PHYSICIAN: Adrian Cartwright DO CHIEF COMPLAINT: Left pneumothorax. SOURCE OF INFORMATION: History is obtained from chart review. HISTORY OF PRESENT ILLNESS: The patient is a 30-year-old man, who has a history of drug abuse, who was found pulseless for unknown period of time. EMS was called and CPR was initiated. He was intubated and brought to the ICU. PAST MEDICAL HISTORY: Drug abuse. ALLERGIES: No known drug allergies. MEDICATIONS ON ADMISSION: Unknown. FAMILY HISTORY: Unknown. REVIEW OF SYSTEMS: Unable to be obtained as he is intubated and sedated. PHYSICAL EXAM: VITAL SIGNS: 33, 64, 115/76, 18, 100% on the ventilator. GENERAL: Intubated, sedated, does not respond to pain. SKIN: Multiple tattoos. LUNGS: No breath sounds on the left. He does have breath sounds on the right. CARDIAC: Regular rate. DATA REVIEWED: I personally reviewed his chest x-ray and see a pneumothorax on the left. IMPRESSION AND PLAN: The patient is a 30-year-old man with a history of drug abuse, who was found down. CPR was initiated. He has a pneumothorax. He is currently on the hypothermia after cardiac arrest protocol. I have been asked to place a chest tube. /[id number]/MODL MTDD
--- NOTE | 2016-05-31 14:05 | HOSPPROG ---
Hospitalist Progress Note Assessment/Plan: 30 y/o male new to my care today presenting with suspected heroin overdose found down #found down currently undergoing HACA #Suspected aspiration started on zosyn #acute left pneumothorax (traumatic related to cpr) #suspected anoxic brain injury #st depression on initial ekg causing concern for PE not on anticoagulation #elevated trop #EDWIN #combined metabolic and respiratory acidosis #mild rhabdo plan cont haca per protocol cont zosyn trend trop and repeat stat ekg follow cpk daily chest tube per surgery monitor renal function will consider systemic anticoagulation if he becomes hemodynamically unstable pt is high risk. Case discussed with Dr. Cartwright and the icu team Subjective: unresponsive Objective: Vital Signs Temp Pulse Resp BP Pulse Ox 33.0 C L 63 18 108/74 100 05/31/16 13:00 05/31/16 13:00 05/31/16 13:00 05/31/16 13:00 05/31/16 13:00 Microbiology 05/30/16 20:39 - Final Sputum, Induced/Suctioned Laboratory Results 05/31/16 10:00 05/31/16 10:00 05/30/16 05/31/16 06/01/16 05:59 05:59 05:59 Intake Total 8911.6 41.9 Output Total 1790 640 Balance 7121.6 -598.1 PT 20.5 SEC (12.0-15.0) H 05/31/16 10:00 INR 1.75 (0.83-1.16) H 05/31/16 10:00 Laboratory Tests 05/31/16 10:00 Troponin I 1.200 H - Physical Exam Cardiovascular: regular rate and rhythym, no murmur, rub, or gallop Respiratory: no respiratory distress, no rales or rhonchi, clear to auscultation Gastrointestinal: normoactive bowel sounds, soft, non-tender abdomen, no palpable masses Skin: other (cool to touch) Neurologic: other (aaox0) Psychiatric: other (sedated) ICD10 Worksheet Patient Problems: Problems Problem Status Onset Cardiac arrest Acute
--- NOTE | 2016-05-31 14:26 | CPEKG ---
Heart Rate: 63 RR Interval: 952 P-R Interval: 168 QRSD Interval: 94 QT Interval: 504 QTC Interval: 517 P Mesa: 57 QRS Mesa: 72 T Wave Mesa: 67 EKG Severity - ABNORMAL ECG - EKG Impression: SINUS RHYTHM EKG Impression: PROLONGED QT INTERVAL Electronically Signed By: Cleve Narayan 31-May-2016 22:33:46
[2016-05-31 14:41] LABS: MAGNESIUM 2.4 mg/dL (1.6-2.3); POTASSIUM 4.2 mEq/L (3.5-5.2)
[2016-05-31] MEDS ORDERED: PROTOCOL CALCIUM 1 DOSE IV PRN (16:22)
[2016-05-31] MEDS ORDERED: PROTOCOL K PHOSPHATE 1 DOSE IV PRN (16:22)
--- NOTE | 2016-05-31 16:33 | GPN ---
[f rep st] PROCEDURE NOTE DATE OF PROCEDURE: 05/31/2016 ANESTHESIA: 5 cc 1% lidocaine. He is currently on propofol and fentanyl. PREOPERATIVE DIAGNOSIS: Left pneumothorax. POSTOPERATIVE DIAGNOSIS: Left pneumothorax. PROCEDURE PERFORMED: Left tube thoracostomy. ESTIMATED BLOOD LOSS: 5 cc. FINDINGS: Large gush of air. INDICATIONS: The patient is a 30-year-old man who was found down. He had CPR initiated and is currently under the HACA protocol. Chest x-ray this morning showed a large left pneumothorax. DESCRIPTION OF PROCEDURE: The patient was in the ICU. I attempted to call his mother for consent, but the voice mailbox was full. Due to this being a large pneumothorax, I proceeded. As I was about to start the procedure, she called in the room and gave her verbal consent. His arm was above his chest. I prepped his left chest with chlorhexidine. I made a small incision over the 5th rib space. I dissected down and inserted a blunt clamp until I entered the pleural cavity. A large gush of air was expressed. I placed a 28-Frisian chest tube in the chest and sutured this into place with 2-0 silk. It was connected to the Pleur-evac. A sterile dressing was applied. The chest x-ray showed near-resolution of the pneumothorax. /[id number]/MODL MTDD
[2016-05-31 18:32] LABS: MAGNESIUM 2.1 mg/dL (1.6-2.3); POTASSIUM 4.4 mEq/L (3.5-5.2)
[2016-05-31 18:44] LABS: TROPONIN I 0.931 ng/mL (0-0.034)
[2016-05-31 22:14] LABS: BASE EXCESS -8.4 mEq/L (-2.5-2.5); BICARBONATE 16 mEq/L (22-26); IONIZED CALCIUM 1.13 MMOL/L (1.12-1.30); MEASURED OXYGEN SATURATION 99 % (92-95); PCO2 33 mmHg (34-38); PO2 160 mmHg (65-75); TCO2 17 mEq/L (23-27)
[2016-05-31 22:41] LABS: INR 1.77 (0.83-1.16); PROTIME(PATIENT) 20.7 SEC (12.0-15.0)
[2016-05-31 22:42] LABS: APTT 31.4 SEC (23.0-38.0)
[2016-05-31 22:49] LABS: % IMMATURE GRANULYOCYTES 0.9 % (0.0-1.1); ABSOLUTE IMMATURE GRANULOCYTES 0.15 10^3/uL (0.00-0.10); ADD DIFF? NO; ADD MORPH? NO; ADD SCAN? NO; ALBUMIN 2.3 g/dL (3.5-5.0); ANION GAP 9 mEq/L (8-16); ATYPICAL LYMPHOCYTE FLAG 20 (0-99); BILIRUBIN,TOTAL 1.3 mg/dL (0.1-1.4); CALCIUM 7.4 mg/dL (8.5-10.4); CARBON DIOXIDE 17 mEq/l (22-31); CHLORIDE 111 mEq/L (97-110); CREATININE 2.3 mg/dL (0.7-1.3); FRAGMENT RBC FLAG 0 (0-99); GLOMERULAR FILTRATION RATE 34; GLUCOSE 80 mg/dL (70-100); HEMATOCRIT 44.6 % (40.0-51.0); HEMOGLOBIN 15.1 g/dL (13.7-17.5); LEFT SHIFT FLG 90 (0-99); LIPEMIA HEMOLYSIS FLAG 90 (0-99); MAGNESIUM 2.1 mg/dL (1.6-2.3); MEAN CELL HEMOGLOBIN 29.3 pg (27.9-34.1); MEAN CELL HEMOGLOBIN CONCENTR. 33.9 g/dL (32.4-36.7); MEAN CELL VOLUME 86.4 fL (81.5-99.8); MEAN PLATELET VOLUME 10.6 fL (8.7-11.7); PLATELET CLUMPS FLAG 50 (0-99); PLATELET COUNT 194 10^3/uL (150-400); POTASSIUM 4.5 mEq/L (3.5-5.2); RED BLOOD CELL COUNT 5.16 10^6/uL (4.40-6.38); RED CELL DISTRIBUTION WIDTH 13.3 % (11.5-15.2); SODIUM 137 mEq/L (134-144)
[2016-05-31 23:13] LABS: ASPARTATE AMINOTRANSFERASE 2284 IU/L (17-59); CK-MB INTERPRETATION NEGATIVE (NEGATIVE)
[2016-06-01] MEDS: PIPERACILLIN/TAZO 3.375 GM/DEX 50 ML IV SCH ×2 (00:30→06:08)
[2016-06-01 02:26] LABS: POTASSIUM 4.6 mEq/L (3.5-5.2)
[2016-06-01] MEDS: fentaNYL/NACL 100 ML IV SCH (03:37)
[2016-06-01 04:18] LABS: BASE EXCESS -7.4 mEq/L (-2.5-2.5); BICARBONATE 17 mEq/L (22-26); IONIZED CALCIUM 1.15 MMOL/L (1.12-1.30); MEASURED OXYGEN SATURATION 98 % (92-95); PCO2 31 mmHg (34-38); PO2 108 mmHg (65-75); TCO2 18 mEq/L (23-27)
[2016-06-01 04:19] LABS: HEMATOCRIT 43.1 % (40.0-51.0); HEMOGLOBIN 14.9 g/dL (13.7-17.5); MEAN CELL HEMOGLOBIN 30.2 pg (27.9-34.1); MEAN CELL HEMOGLOBIN CONCENTR. 34.6 g/dL (32.4-36.7); MEAN CELL VOLUME 87.4 fL (81.5-99.8); RED BLOOD CELL COUNT 4.93 10^6/uL (4.40-6.38); RED CELL DISTRIBUTION WIDTH 13.5 % (11.5-15.2)
[2016-06-01 04:21] LABS: END TIDAL CO2 33; TOTAL RATE 18
[2016-06-01 04:28] LABS: INR 1.88 (0.83-1.16); PROTIME(PATIENT) 21.7 SEC (12.0-15.0)
[2016-06-01 04:29] LABS: APTT 34.4 SEC (23.0-38.0)
[2016-06-01 04:37] LABS: ALBUMIN 2.2 g/dL (3.5-5.0); ALKALINE PHOSPHATASE 63 IU/L (38-126); ANION GAP 7 mEq/L (8-16); BILIRUBIN,TOTAL 1.1 mg/dL (0.1-1.4); CALCIUM 7.7 mg/dL (8.5-10.4); CARBON DIOXIDE 18 mEq/l (22-31); CHLORIDE 113 mEq/L (97-110); CREATININE 2.4 mg/dL (0.7-1.3); GLOMERULAR FILTRATION RATE 32; GLUCOSE 85 mg/dL (70-100); POTASSIUM 4.8 mEq/L (3.5-5.2); SODIUM 138 mEq/L (134-144); TOTAL PROTEIN 4.5 g/dL (6.3-8.2)
[2016-06-01 05:04] LABS: ALANINE AMINOTRANSFERASE 3003 IU/L (21-72); ASPARTATE AMINOTRANSFERASE 2016 IU/L (17-59)
[2016-06-01] MEDS: MIDAZOLAM HCL 50 MG in D5W 50 ML IV PRN (06:25)
[2016-06-01 06:58] LABS: ALBUMIN 2.2 g/dL (3.5-5.0); ALKALINE PHOSPHATASE 66 IU/L (38-126); ANION GAP 6 mEq/L (8-16); CALCIUM 7.6 mg/dL (8.5-10.4); CARBON DIOXIDE 19 mEq/l (22-31); CHLORIDE 113 mEq/L (97-110); CREATININE 2.4 mg/dL (0.7-1.3); GLOMERULAR FILTRATION RATE 32; GLUCOSE 83 mg/dL (70-100); MAGNESIUM 1.9 mg/dL (1.6-2.3); POTASSIUM 4.7 mEq/L (3.5-5.2); SODIUM 138 mEq/L (134-144); TOTAL PROTEIN 4.6 g/dL (6.3-8.2)
[2016-06-01 07:46] LABS: ALANINE AMINOTRANSFERASE 2980 IU/L (21-72); ASPARTATE AMINOTRANSFERASE 1945 IU/L (17-59)
[2016-06-01] MEDS: CHLORHEXIDINE GLUCONATE 15 ML UDL PO SCH ×2 (08:27→20:15)
[2016-06-01] MEDS: levETIRAcetam 500 MG in NS 100 ML IV SCH ×2 (08:49→20:16)
[2016-06-01] MEDS: PANTOPRAZOLE SODIUM 40 MG in NS 100 ML IV SCH ×2 (08:50→20:16)
[2016-06-01] MEDS: NS 1,000 ML IV SCH (08:54)
[2016-06-01] MEDS: RN MUST REMOVE K+ & MG+ PROTOCOL FROM WORKLIST AT 36 C MISC SCH (09:16)
[2016-06-01] MEDS: MAINTAIN PARALYTIC,ANALGESIA,SEDATION UNTIL TEMP IS 36C MISC SCH (09:16)
[2016-06-01] MEDS: SODIUM BICARBONATE 150 MEQ in D5W 1,000 ML IV SCH ×2 (10:16→17:10)
[2016-06-01 10:23] LABS: % IMMATURE GRANULYOCYTES 1.1 % (0.0-1.1); ABSOLUTE IMMATURE GRANULOCYTES 0.21 10^3/uL (0.00-0.10); ADD DIFF? NO; ADD MORPH? NO; ADD SCAN? NO; ATYPICAL LYMPHOCYTE FLAG 10 (0-99); FRAGMENT RBC FLAG 0 (0-99); HEMATOCRIT 41.3 % (40.0-51.0); HEMOGLOBIN 14.2 g/dL (13.7-17.5); LEFT SHIFT FLG 80 (0-99); LIPEMIA HEMOLYSIS FLAG 90 (0-99); MEAN CELL HEMOGLOBIN 30.3 pg (27.9-34.1); MEAN CELL HEMOGLOBIN CONCENTR. 34.4 g/dL (32.4-36.7); MEAN CELL VOLUME 88.2 fL (81.5-99.8); MEAN PLATELET VOLUME 10.7 fL (8.7-11.7); PLATELET CLUMPS FLAG 0 (0-99); PLATELET COUNT 194 10^3/uL (150-400); RED BLOOD CELL COUNT 4.68 10^6/uL (4.40-6.38); RED CELL DISTRIBUTION WIDTH 13.7 % (11.5-15.2)
[2016-06-01 10:32] LABS: INR 2.07 (0.83-1.16); PROTIME(PATIENT) 23.4 SEC (12.0-15.0)
[2016-06-01 10:33] LABS: IONIZED CALCIUM 1.08 MMOL/L (1.12-1.30)
[2016-06-01 10:33] LABS: APTT 34.4 SEC (23.0-38.0)
--- NOTE | 2016-06-01 10:39 | SOAPPROG ---
SOAP Progress Note Assessment/Plan: Assessment: 30yo M admitted with heroin overdose found pulseless. On hypothermia protocol L PTX s/p chest tube placement CXR this am with tiny apical PTX No air leak Minimal output Keep CT to suction, will reeval tomorrow O: intubated and sedated lungs clear anteriorly min serosanguinous output no air leak dressing intact Objective: Vital Signs Temp Pulse Resp BP Pulse Ox 35.9 C L 83 18 116/68 100 06/01/16 10:00 06/01/16 10:00 06/01/16 10:00 06/01/16 10:00 06/01/16 10:00 Microbiology 05/30/16 20:39 - Final Sputum, Induced/Suctioned Laboratory Results 06/01/16 10:05 05/31/16 06/01/16 06/02/16 05:59 05:59 05:59 Intake Total 8911.6 5416.0 Output Total 1790 2715 450 Balance 7121.6 2701.0 -450 PT 21.7 SEC (12.0-15.0) H 06/01/16 04:00 INR 1.88 (0.83-1.16) H 06/01/16 04:00 ICD10 Worksheet Patient Problems: Problems Problem Status Onset Cardiac arrest Acute
[2016-06-01 10:42] LABS: ALBUMIN 2.1 g/dL (3.5-5.0); ANION GAP 6 mEq/L (8-16); CALCIUM 7.5 mg/dL (8.5-10.4); CARBON DIOXIDE 19 mEq/l (22-31); CHLORIDE 114 mEq/L (97-110); CREATININE 2.6 mg/dL (0.7-1.3); GLOMERULAR FILTRATION RATE 29; GLUCOSE 86 mg/dL (70-100); POTASSIUM 4.7 mEq/L (3.5-5.2); SODIUM 139 mEq/L (134-144)
[2016-06-01 11:40] LABS: ASPARTATE AMINOTRANSFERASE 1750 IU/L (17-59)
[2016-06-01 11:54] LABS: CK-MB INTERPRETATION NEGATIVE (NEGATIVE)
[2016-06-01] MEDS: PIPERACILLIN/TAZO 2.25 GM/DEX 50 ML IV SCH ×3 (13:14→23:28)
[2016-06-01 13:24] LABS: BASE EXCESS -4.9 mEq/L (-2.5-2.5); BICARBONATE 19 mEq/L (22-26); IONIZED CALCIUM 1.12 MMOL/L (1.12-1.30); MEASURED OXYGEN SATURATION 99 % (92-95); PCO2 32 mmHg (34-38); PO2 134 mmHg (65-75); TCO2 20 mEq/L (23-27)
[2016-06-01 13:26] LABS: ASSIST CONTROL YES
[2016-06-01 13:27] LABS: END TIDAL CO2 34; O2 CONCENTRATIION 40 % (0-100); P/F RATIO 335 RATIO
--- NOTE | 2016-06-01 13:49 | PDINTPN ---
Other Wood Processing Machine Operator Progress Note Assessment/Plan: Assessment/plan: 30 M with hx heroin and cocaine abuse found down for unknown period 05/30/16 and found pulseless and apneic. EMS resuscitated in field after 3 rounds of epi and CPR, plus narcan. Also intubated in field and started hypothermia protocol. Course complicated by rib fractures and PTX requiring chest tube per surgery. Initially hypothermic prior to protocol, and now rewarming. Pressors started to maintain MAP>80 per protocol as well as paralytics for rigors. * cardiac arrest likely2/2 narcotics/cocaine overdose. Guarded prognosis, but await reduced sedation and paralytics to allow neuro eval. Troponin peaked at 0.9 and falling to 0.6. Will likely need head CT if not MRI soon to eval for anoxic brain injury * Respiratory failure with hypoxemia 2/2 arrest, PTX, and likely aspiration. Minimal vent settings at the moment and will wean once he is more awake. * PTX 2/2 CPR- tiny apical PTX remains but CT in place without apparent leak * PNA- wbc rising slightly, currently treated with Zosyn (will renally dose today) * EDWIN- 2/2 arrest with rise in creatinine from 2.4 to 2.6 but UOP adequate. Started bicarb drip and will re-examine abg later today. Vent set at RR 18 TV 600 with CO2 18, so will likely need to reduce rate. No e/o ARDS at the moment. K= 4.7 this am. Do not think rhabdo is major contributor * Rhabdo 2/2 arrest- CK peaked at 7198; down to 3834 today. * Transaminitis 2/2 shock liver. LFTs improving. INR at 2.07, but should also improve with time. No indication for FFP/vit K at this time. * Seizure? remains on keppra * critical care time 60 minutes Subjective: sedated and paralyzed on vent Objective: Vital Signs Temp Pulse Resp BP Pulse Ox 36.5 C 86 18 119/71 100 06/01/16 13:00 06/01/16 13:00 06/01/16 13:00 06/01/16 13:00 06/01/16 13:00 Microbiology 05/30/16 20:39 - Final Sputum, Induced/Suctioned Laboratory Results 06/01/16 10:05 06/01/16 10:05 05/31/16 06/01/16 06/02/16 05:59 05:59 05:59 Intake Total 8911.6 5416.0 Output Total 1790 2715 850 Balance 7121.6 2701.0 -850 PT 23.4 SEC (12.0-15.0) H 06/01/16 10:05 INR 2.07 (0.83-1.16) H 06/01/16 10:05 Physical Exam - Physical Exam General Appearance: no apparent distress EENT: PERRL/EOMI, ET tube Neck: supple Respiratory: lungs clear, normal breath sounds, No respiratory distress, No rales, No rhonchi Cardiac/Chest: normal peripheral pulses, regular rate, rhythm, No edema Abdomen: non-tender, No organomegaly, No distended, No hepatomegaly, No splenomegaly Skin: normal color, warm/dry, No cyanosis Lymphatic: no adenopathy Extremities: normal inspection, No pedal edema Neuro/Psych: other (sedated and paralyzed) ICD10 Worksheet Patient Problems: Problems Problem Status Onset Cardiac arrest Acute
--- NOTE | 2016-06-01 14:28 | HOSPPROG ---
Hospitalist Progress Note Assessment/Plan: 30 y/o male found down due to suspected heroin overdose # cardiac arrest * finishing up HACA protocol # aspiration pneumonia * on Zosyn #acute left pneumothorax (traumatic related to cpr) * chest tube * surgery following #suspected anoxic brain injury * will see how he does when he wakes up #st depression on initial ekg causing concern for PE not on anticoagulation * echocardiogram does not show any right-sided failure #elevated trop * trending down #EDWIN * not oliguric * creatinine seems to be plateaued #mild rhabdo * improving * shocked liver * improving 35 minutes of critical care time spent Subjective: no new events. Being warmed Objective: Vital Signs Temp Pulse Resp BP Pulse Ox 36.5 C 90 18 130/75 H 100 06/01/16 14:00 06/01/16 14:00 06/01/16 14:00 06/01/16 14:00 06/01/16 14:00 Microbiology 05/30/16 20:39 - Final Sputum, Induced/Suctioned Laboratory Results 06/01/16 10:05 06/01/16 10:05 05/31/16 06/01/16 06/02/16 05:59 05:59 05:59 Intake Total 8911.6 5416.0 Output Total 1790 2715 850 Balance 7121.6 2701.0 -850 PT 23.4 SEC (12.0-15.0) H 06/01/16 10:05 INR 2.07 (0.83-1.16) H 06/01/16 10:05 - Physical Exam Constitutional: no apparent distress, appears nourished, not in pain Cardiovascular: regular rate and rhythym, no murmur, rub, or gallop Respiratory: no respiratory distress, no rales or rhonchi, clear to auscultation Gastrointestinal: normoactive bowel sounds, soft, non-tender abdomen, no palpable masses Skin: warm Neurologic: other ( paralyzed and sedated) ICD10 Worksheet Patient Problems: Problems Problem Status Onset Cardiac arrest Acute
[2016-06-01] MEDS ORDERED: PROTOCOL MAGNESIUM 1 DOSE IV PRN (14:41)
[2016-06-01] MEDS ORDERED: CALCIUM GLUCONATE 50 ML IV ONE (14:44)
[2016-06-01 16:25] LABS: HEMATOCRIT 39.1 % (40.0-51.0); HEMOGLOBIN 13.7 g/dL (13.7-17.5); MEAN CELL HEMOGLOBIN 30.9 pg (27.9-34.1); MEAN CELL VOLUME 88.1 fL (81.5-99.8); RED BLOOD CELL COUNT 4.44 10^6/uL (4.40-6.38); RED CELL DISTRIBUTION WIDTH 13.7 % (11.5-15.2)
[2016-06-01 16:42] LABS: INR 1.99 (0.83-1.16); PROTIME(PATIENT) 22.7 SEC (12.0-15.0)
[2016-06-01 16:43] LABS: APTT 35.7 SEC (23.0-38.0)
[2016-06-01 16:48] LABS: ALBUMIN 2.1 g/dL (3.5-5.0); ALKALINE PHOSPHATASE 59 IU/L (38-126); ANION GAP 7 mEq/L (8-16); BILIRUBIN,TOTAL 0.8 mg/dL (0.1-1.4); CALCIUM 7.7 mg/dL (8.5-10.4); CARBON DIOXIDE 22 mEq/l (22-31); CHLORIDE 109 mEq/L (97-110); CREATININE 2.8 mg/dL (0.7-1.3); GLOMERULAR FILTRATION RATE 27; GLUCOSE 98 mg/dL (70-100); POTASSIUM 4.1 mEq/L (3.5-5.2); SODIUM 138 mEq/L (134-144); TOTAL PROTEIN 4.3 g/dL (6.3-8.2)
[2016-06-01 17:42] LABS: ALANINE AMINOTRANSFERASE 2714 IU/L (21-72); ASPARTATE AMINOTRANSFERASE 1483 IU/L (17-59)
[2016-06-01] MEDS: PROPOFOL/EMULSION 100 ML IV SCH (18:18)
[2016-06-01] MEDS ORDERED: LORazepam 2 MG/ML INJ IVP ONE (19:00)
[2016-06-01 19:44] LABS: POTASSIUM 4.1 mEq/L (3.5-5.2)
[2016-06-01 22:32] LABS: BASE EXCESS 0.1 mEq/L (-2.5-2.5); BICARBONATE 24 mEq/L (22-26); MEASURED OXYGEN SATURATION 98 % (92-95); PCO2 40 mmHg (34-38); PO2 117 mmHg (65-75); TCO2 26 mEq/L (23-27)
[2016-06-01 22:35] LABS: % IMMATURE GRANULYOCYTES 1.8 % (0.0-1.1); ABSOLUTE IMMATURE GRANULOCYTES 0.27 10^3/uL (0.00-0.10); ADD DIFF? NO; ADD MORPH? NO; ADD SCAN? NO; ASSIST CONTROL YES; ATYPICAL LYMPHOCYTE FLAG 20 (0-99); FRAGMENT RBC FLAG 0 (0-99); HEMATOCRIT 36.2 % (40.0-51.0); HEMOGLOBIN 12.5 g/dL (13.7-17.5); LEFT SHIFT FLG 60 (0-99); LIPEMIA HEMOLYSIS FLAG 90 (0-99); MEAN CELL HEMOGLOBIN 30.2 pg (27.9-34.1); MEAN CELL HEMOGLOBIN CONCENTR. 34.5 g/dL (32.4-36.7); MEAN CELL VOLUME 87.4 fL (81.5-99.8); MEAN PLATELET VOLUME 10.7 fL (8.7-11.7); P/F RATIO 293 RATIO; PLATELET CLUMPS FLAG 0 (0-99); PLATELET COUNT 166 10^3/uL (150-400); RED BLOOD CELL COUNT 4.14 10^6/uL (4.40-6.38); RED CELL DISTRIBUTION WIDTH 13.6 % (11.5-15.2)
[2016-06-01 22:36] LABS: O2 CONCENTRATIION 40 % (0-100); TOTAL RATE 18
[2016-06-01 22:40] LABS: ANION GAP 6 mEq/L (8-16); BILIRUBIN,TOTAL 0.8 mg/dL (0.1-1.4); CALCIUM 7.4 mg/dL (8.5-10.4); CARBON DIOXIDE 25 mEq/l (22-31); CHLORIDE 107 mEq/L (97-110); GLOMERULAR FILTRATION RATE 25; GLUCOSE 93 mg/dL (70-100); INR 1.81 (0.83-1.16); POTASSIUM 3.9 mEq/L (3.5-5.2); PROTIME(PATIENT) 21.1 SEC (12.0-15.0); SODIUM 138 mEq/L (134-144)
[2016-06-01 22:41] LABS: APTT 34.9 SEC (23.0-38.0)
[2016-06-01 23:03] LABS: ASPARTATE AMINOTRANSFERASE 1204 IU/L (17-59)
[2016-06-02] MEDS: fentaNYL/NACL 100 ML IV SCH (00:11)
[2016-06-02] MEDS: PROPOFOL/EMULSION 100 ML IV SCH ×3 (02:32→12:28)
[2016-06-02] MEDS: SODIUM BICARBONATE 150 MEQ in D5W 1,000 ML IV SCH ×3 (02:32→22:48)
[2016-06-02] MEDS: LORazepam 2 MG/ML INJ IVP PRN (02:59)
[2016-06-02 06:09] LABS: ASSIST CONTROL YES; BASE EXCESS 3.3 mEq/L (-2.5-2.5); BICARBONATE 28 mEq/L (22-26); MEASURED OXYGEN SATURATION 97 % (92-95); PCO2 44 mmHg (34-38); PO2 95 mmHg (65-75); TCO2 29 mEq/L (23-27)
[2016-06-02 06:10] LABS: END TIDAL CO2 51; O2 CONCENTRATIION 40 % (0-100); P/F RATIO 238 RATIO; TOTAL RATE 23
[2016-06-02 06:18] LABS: % IMMATURE GRANULYOCYTES 1.2 % (0.0-1.1); ABSOLUTE IMMATURE GRANULOCYTES 0.17 10^3/uL (0.00-0.10); ADD DIFF? NO; ADD MORPH? NO; ADD SCAN? NO; ATYPICAL LYMPHOCYTE FLAG 10 (0-99); FRAGMENT RBC FLAG 0 (0-99); HEMATOCRIT 35.2 % (40.0-51.0); HEMOGLOBIN 12.1 g/dL (13.7-17.5); LEFT SHIFT FLG 40 (0-99); LIPEMIA HEMOLYSIS FLAG 90 (0-99); MEAN CELL HEMOGLOBIN CONCENTR. 34.4 g/dL (32.4-36.7); MEAN CELL VOLUME 87.1 fL (81.5-99.8); MEAN PLATELET VOLUME 10.6 fL (8.7-11.7); PLATELET CLUMPS FLAG 0 (0-99); PLATELET COUNT 158 10^3/uL (150-400); RED BLOOD CELL COUNT 4.04 10^6/uL (4.40-6.38); RED CELL DISTRIBUTION WIDTH 13.5 % (11.5-15.2)
[2016-06-02] MEDS: PIPERACILLIN/TAZO 2.25 GM/DEX 50 ML IV SCH ×3 (06:23→18:28)
[2016-06-02 07:01] LABS: ALBUMIN 2.1 g/dL (3.5-5.0); ALKALINE PHOSPHATASE 63 IU/L (38-126); ANION GAP 6 mEq/L (8-16); BILIRUBIN,TOTAL 0.9 mg/dL (0.1-1.4); CALCIUM 7.5 mg/dL (8.5-10.4); CARBON DIOXIDE 29 mEq/l (22-31); CHLORIDE 106 mEq/L (97-110); CREATININE 3.1 mg/dL (0.7-1.3); GLOMERULAR FILTRATION RATE 24; GLUCOSE 83 mg/dL (70-100); POTASSIUM 3.6 mEq/L (3.5-5.2); SODIUM 141 mEq/L (134-144); TOTAL PROTEIN 4.2 g/dL (6.3-8.2)
[2016-06-02 07:02] LABS: ASPARTATE AMINOTRANSFERASE 1158 IU/L (17-59)
[2016-06-02 07:25] LABS: ALANINE AMINOTRANSFERASE 2186 IU/L (21-72)
[2016-06-02] MEDS ORDERED: CALCIUM GLUCONATE 50 ML IV ONE (08:35)
[2016-06-02] MEDS: levETIRAcetam 500 MG in NS 100 ML IV SCH ×2 (08:47→21:06)
[2016-06-02] MEDS: PANTOPRAZOLE SODIUM 40 MG in NS 100 ML IV SCH (08:48)
[2016-06-02] MEDS: CHLORHEXIDINE GLUCONATE 15 ML UDL PO SCH ×2 (08:48→21:06)
--- NOTE | 2016-06-02 12:40 | SOAPPROG ---
SOAP Progress Note Assessment/Plan: Assessment: 30yo M admitted with heroin overdose found pulseless. HACA - now rewarmed L PTX s/p chest tube placement CXR this am no PTX No air leak Minimal output Keep CT to suction, continue as long as ventilated Seen with Dr. Doherty O: intubated and sedated, family at bedside increased WOB min serosanguinous output no air leak Objective: Vital Signs Temp Pulse Resp BP Pulse Ox 36.8 C 102 H 24 H 135/78 H 100 06/02/16 12:00 06/02/16 12:00 06/02/16 12:00 06/02/16 12:00 06/02/16 12:00 Microbiology 05/30/16 20:39 - Final Sputum, Induced/Suctioned Sputum Culture - Final Strep Agalactiae Group B Laboratory Results 06/02/16 06:00 06/02/16 06:00 06/01/16 06/02/16 06/03/16 05:59 05:59 05:59 Intake Total 5416.0 6460.2 Output Total 2715 3624 475 Balance 2701.0 2836.2 -475 PT 21.1 SEC (12.0-15.0) H 06/01/16 22:15 INR 1.81 (0.83-1.16) H 06/01/16 22:15 ICD10 Worksheet Patient Problems: Problems Problem Status Onset Cardiac arrest Acute
--- NOTE | 2016-06-02 13:55 | HOSPPROG ---
Hospitalist Progress Note Assessment/Plan: 30 y/o male found down due to suspected heroin overdose # cardiac arrest * status post HACA protocol # aspiration pneumonia * on Zosyn * looks like right upper lobe atelectasis on chest x-ray today #acute left pneumothorax (traumatic related to cpr) * chest tube * surgery following #suspected anoxic brain injury * neuro consultation today * myoclonus versus seizure * getting EEG * on Keppra * neurology will see #st depression on initial ekg causing concern for PE not on anticoagulation * echocardiogram does not show any right-sided failure #elevated trop * trending down #EDWIN * not oliguric * creatinine seems to be plateaued #mild rhabdo * improving * shocked liver * improving 35 minutes of critical care time spent Subjective: myoclonic movements noticed since last evening Objective: Vital Signs Temp Pulse Resp BP Pulse Ox 36.8 C 95 24 H 132/75 H 100 06/02/16 13:00 06/02/16 13:00 06/02/16 13:00 06/02/16 13:00 06/02/16 13:00 Microbiology 05/30/16 20:39 - Final Sputum, Induced/Suctioned Sputum Culture - Final Strep Agalactiae Group B Laboratory Results 06/02/16 06:00 06/02/16 06:00 06/01/16 06/02/16 06/03/16 05:59 05:59 05:59 Intake Total 5416.0 6460.2 Output Total 2715 3624 665 Balance 2701.0 2836.2 -665 PT 21.1 SEC (12.0-15.0) H 06/01/16 22:15 INR 1.81 (0.83-1.16) H 06/01/16 22:15 - Physical Exam Constitutional: no apparent distress, appears nourished, not in pain Eyes: other ( pupils about 2 mm and sluggish) Ears, Nose, Mouth, Throat: other ( ETT in place) Cardiovascular: regular rate and rhythym, no murmur, rub, or gallop Respiratory: no respiratory distress, no rales or rhonchi, clear to auscultation Gastrointestinal: normoactive bowel sounds, soft, non-tender abdomen, no palpable masses Neurologic: other ( myoclonic type movements in extremities) ICD10 Worksheet Patient Problems: Problems Problem Status Onset Cardiac arrest Acute
--- NOTE | 2016-06-02 14:52 | PDINTPN ---
Slug Press Operator Progress Note Assessment/Plan: Assessment/plan: 30 M with hx heroin and cocaine abuse found down for unknown period 05/30/16 and found pulseless and apneic. EMS resuscitated in field after 3 rounds of epi and CPR, plus narcan. Also intubated in field and started hypothermia protocol. Course complicated by rib fractures and PTX requiring chest tube per surgery. Initially hypothermic prior to protocol, and now rewarming. Pressors started to maintain MAP>80 per protocol as well as paralytics for rigors. * cardiac arrest likely2/2 narcotics/cocaine overdose. Prognosis remains guarded at the moment given presentation of hypothermia, sz/myoclonus, and unknown time down. * Respiratory failure with hypoxemia 2/2 arrest, PTX, and likely aspiration. Minimal vent settings but failed initial wean today with increased RR to 40-50' s (spontaneously breathing). Continue to support. * PTX 2/2 CPR- tiny apical PTX remains but CT in place without apparent leak. Discussed with surgery * PNA- wbc improved. currently treated with Zosyn * EDWIN- 2/2 arrest with rise in creatinine; now at plateau with brisk UOP- c/w post ATN diuresis. DC HCO3 drip. * Rhabdo 2/2 arrest- CK peaked at 7198; down to 3834 today. * Transaminitis 2/2 shock liver. LFTs improving. * Seizure? remains on keppra. EEG pending as well as neuro consult. * critical care time 60 minutes 06/02/16 14:49 Subjective: Possible seizure activity noted with reduction in sedation. Decrebrate posturing reported by RN as well Objective: Vital Signs Temp Pulse Resp BP Pulse Ox 36.8 C 95 24 H 132/75 H 100 06/02/16 13:00 06/02/16 13:00 06/02/16 13:00 06/02/16 13:00 06/02/16 13:00 Microbiology 05/30/16 20:39 - Final Sputum, Induced/Suctioned Sputum Culture - Final Strep Agalactiae Group B Laboratory Results 06/02/16 06:00 06/02/16 06:00 06/01/16 06/02/16 06/03/16 05:59 05:59 05:59 Intake Total 5416.0 6460.2 Output Total 2715 3624 665 Balance 2701.0 2836.2 -665 PT 21.1 SEC (12.0-15.0) H 06/01/16 22:15 INR 1.81 (0.83-1.16) H 06/01/16 22:15 Physical Exam - Physical Exam General Appearance: other (inc RR on PS; no commands on propofol) EENT: PERRL/EOMI (small pupils but sluggish) Neck: supple, normal inspection Respiratory: lungs clear, normal breath sounds, No respiratory distress Cardiac/Chest: normal peripheral pulses, regular rate, rhythm, edema Abdomen: non-tender, soft, No organomegaly Skin: normal color, warm/dry, No rash Lymphatic: no adenopathy Extremities: non-tender, No pedal edema (no response to noxious stim on propofol. +corneals, +pupils but small, sluggish) ICD10 Worksheet Patient Problems: Problems Problem Status Onset Cardiac arrest Acute
[2016-06-02] MEDS: HEPARIN 5,000 UNIT/0.5 ML SYR SC SCH ×2 (16:57→22:48)
--- NOTE | 2016-06-02 18:08 | GCON ---
[f rep st] CONSULTATION NEUROLOGY CONSULT REFERRING PHYSICIAN: Camilo Drew MD CHIEF COMPLAINT: Hypoxic ischemic brain injury. HISTORY OF PRESENT ILLNESS: The patient is a 30-year-old gentleman, who was found by his roommates to be in cardiac arrest for an unknown period of time. He was found apneic and pulseless on the scene. CPR was initiated along with intubation, and 3 rounds of epinephrine and 2 mg of IO Narcan en route to our ER. There is suspected use of cocaine or heroin in terms of an overdose mechanism. He was put onto HACA protocol and rewarmed yesterday around 12:40 p.m., and has normal body temperature essentially since that time. On examining him, he was initially on 40 of propofol which was discontinued prior to my full examination. When he came to the emergency department, his pupils were fixed and dilated. He has had some shivering activity without definite convulsions. REVIEW OF SYSTEMS: Pertinent to HPI. For past medical history, social history, family history, home medications, allergies, see the history and physical. PHYSICAL EXAM: VITAL SIGNS: Blood pressure 132/75, temperature 36.9, 100% oxygen saturation intubated, respiratory rate 23, ventilator set at 16. HIGHER MENTAL FUNCTION: Patient does not have any meaningful response to any type of stimuli, verbal, tactile, or pain. Does not open eyes to any type of stimulus or spontaneously. Cranial nerve exam: The patient has 3-4 mm pupils bilaterally. They are sluggishly reactive to light bilaterally. Corneal reflex present on the left, absent on the right. Vestibuloocular reflex was not present with moving head side to side. The patient is breathing above the ventilator at 24-26 breaths per minute. The ventilator is set at 16. Motor exam: He has no withdrawal to pain with deep nail bed painful stimuli. The patient has posturing in a flexor pattern. There was no localizing or withdrawal to pain. Toes are indeterminate bilaterally. The patient did have shivering movements superimposed that were generalized in distribution. TESTING: The patient had an EEG while I was bedside. The EEG showed diffuse nonspecific slowing. The patient had high-amplitude shivering during the recording, which had no EEG correlate consistent with nonepileptic shivering. A full report of the EEG will be dictated elsewhere. IMPRESSION AND PLAN: 1. Hypoxic ischemic encephalopathy. The patient's clinical exam is consistent with a severe hypoxic ischemic brain injury with diffuse cortical injury based on his absence of consciousness. He does have preservation of some brainstem reflexes as noted in my physical exam above. The EEG shows the shivering movements are nonepileptic. The EEG shows diffuse nonspecific slowing in regard to the portion of the tracing I reviewed while bedside. Based on all of this data, the overall neurologic prognosis appears poor at this point. I will discuss my thoughts and findings with the patient's mother and father later this afternoon in a family conference to help make further plans of care. Thank you for this consultation. /[id number]/MODL MTDD
--- NOTE | 2016-06-02 18:29 | CPEEG ---
[f rep st] ELECTROENCEPHALOGRAM DATE OF STUDY: 06/02/2016 INTERPRETATION: This EEG contains a moderate degree of diffuse nonspecific slowing. These findings are consistent with a moderately severe disturbance of diffuse cerebral dysfunction. There were no potentially epileptogenic abnormalities or seizure discharges present during the recording. The patient had typical shivering movements for prolonged periods during the recording. These movements did not have an EEG correlate and were consistent with nonepileptic shivering. REPORT: This EEG contains 5-6 Hz theta activity to the posterior head regions. There was a moderate degree of diffuse nonspecific slowing in the background activity composed of theta frequency and low-amplitude delta frequency activities. There were periods of copious myogenic and movement artifact, which obscured the tracing. This artifact correlated with the patient's tremoring / shivering movements. There was no underlying EEG correlate with these movements. /[id number]/MODL MTDD
[2016-06-03] MEDS: LORazepam 2 MG/ML INJ IVP PRN ×2 (00:44→18:55)
[2016-06-03 05:18] LABS: % IMMATURE GRANULYOCYTES 0.6 % (0.0-1.1); ABSOLUTE IMMATURE GRANULOCYTES 0.07 10^3/uL (0.00-0.10); ADD DIFF? NO; ADD MORPH? NO; ADD SCAN? NO; ATYPICAL LYMPHOCYTE FLAG 30 (0-99); FRAGMENT RBC FLAG 0 (0-99); HEMATOCRIT 34.5 % (40.0-51.0); HEMOGLOBIN 11.9 g/dL (13.7-17.5); LEFT SHIFT FLG 20 (0-99); LIPEMIA HEMOLYSIS FLAG 90 (0-99); MEAN CELL HEMOGLOBIN 30.1 pg (27.9-34.1); MEAN CELL HEMOGLOBIN CONCENTR. 34.5 g/dL (32.4-36.7); MEAN CELL VOLUME 87.1 fL (81.5-99.8); MEAN PLATELET VOLUME 10.6 fL (8.7-11.7); PLATELET CLUMPS FLAG 10 (0-99); PLATELET COUNT 159 10^3/uL (150-400); RED BLOOD CELL COUNT 3.96 10^6/uL (4.40-6.38); RED CELL DISTRIBUTION WIDTH 13.2 % (11.5-15.2)
[2016-06-03 05:22] LABS: IONIZED CALCIUM 0.99 MMOL/L (1.12-1.30)
[2016-06-03 05:36] LABS: ALBUMIN 2.2 g/dL (3.5-5.0); ALKALINE PHOSPHATASE 78 IU/L (38-126); ANION GAP 8 mEq/L (8-16); ASPARTATE AMINOTRANSFERASE 693 IU/L (17-59); BILIRUBIN,TOTAL 1.4 mg/dL (0.1-1.4); CALCIUM 7.5 mg/dL (8.5-10.4); CARBON DIOXIDE 33 mEq/l (22-31); CHLORIDE 100 mEq/L (97-110); CREATININE 3.1 mg/dL (0.7-1.3); GLOMERULAR FILTRATION RATE 24; GLUCOSE 86 mg/dL (70-100); MAGNESIUM 2.1 mg/dL (1.6-2.3); POTASSIUM 3.7 mEq/L (3.5-5.2); SODIUM 141 mEq/L (134-144); TOTAL PROTEIN 4.5 g/dL (6.3-8.2)
[2016-06-03 05:45] LABS: ALANINE AMINOTRANSFERASE 1467 IU/L (21-72)
[2016-06-03] MEDS ORDERED: PROTOCOL CALCIUM 1 DOSE IV PRN (06:06)
[2016-06-03] MEDS: HEPARIN 5,000 UNIT/0.5 ML SYR SC SCH ×3 (06:26→20:49)
[2016-06-03] MEDS: PROPOFOL/EMULSION 100 ML IV SCH ×2 (06:26)
[2016-06-03] MEDS: PIPERACILLIN/TAZO 2.25 GM/DEX 50 ML IV SCH ×4 (06:26→18:56)
[2016-06-03] MEDS ORDERED: CALCIUM GLUCONATE 50 ML IV ONE (06:33)
[2016-06-03] MEDS: CHLORHEXIDINE GLUCONATE 15 ML UDL PO SCH ×2 (08:00→20:49)
[2016-06-03] MEDS: levETIRAcetam 500 MG in NS 100 ML IV SCH ×2 (08:09→20:49)
[2016-06-03] MEDS: PANTOPRAZOLE SODIUM 40 MG in NS 100 ML IV SCH (08:53)
--- NOTE | 2016-06-03 09:53 | PDINTPN ---
Crate Icer Progress Note Assessment/Plan: Assessment/plan: 30 M with hx heroin and cocaine abuse found down for unknown period 05/30/16 and found pulseless and apneic. EMS resuscitated in field after 3 rounds of epi and CPR, plus narcan. Also intubated in field and started hypothermia protocol. Course complicated by rib fractures and PTX requiring chest tube per surgery. Initially hypothermic prior to protocol, and now rewarming. Pressors started to maintain MAP>80 per protocol as well as paralytics for rigors. * cardiac arrest likely2/2 narcotics/cocaine overdose. Prognosis remains guarded at the moment given presentation of hypothermia, and unknown time down. EEG with diffuse slowing at 72 hours post-event, consistent with anoxic brain injury. Given young age, will continue support for now. * Respiratory failure with hypoxemia 2/2 arrest, PTX, and likely aspiration. Weaning today on PS 15 as tolerated. Depending oncourse, may need perc trach. Vent day #4 * PTX 2/2 CPR- tiny apical PTX remains but CT in place without apparent leak. Discussed with surgery. Stable at the moment * PNA- wbc continues to improve. currently treated with Zosyn * EDWIN- 2/2 arrest. creatinine stable at 3.1 but UOP at >2 liters daily. No indication for HD. c/w post ATN diuresis. HCO3 drip dc'd * Rhabdo 2/2 arrest- CK peaked at 7198 and falling. Not a large factor for EDWIN * Transaminitis 2/2 shock liver. LFTs continue to fall. * Non-seizure actiovity on EEG. * * critical care time 60 minutes 06/02/16 14:49 06/03/16 09:46 Subjective: Stable overnight, EEG performed with neuro consult. Objective: Vital Signs Temp Pulse Resp BP Pulse Ox 37.2 C 76 21 H 140/77 H 100 06/03/16 06:00 06/03/16 08:45 06/03/16 06:00 06/03/16 06:00 06/03/16 08:45 Laboratory Results 06/03/16 04:58 06/03/16 04:58 06/02/16 06/03/16 06/04/16 05:59 05:59 05:59 Intake Total 6460.2 4746 Output Total 3624 3570 Balance 2836.2 1176 PT 21.1 SEC (12.0-15.0) H 06/01/16 22:15 INR 1.81 (0.83-1.16) H 06/01/16 22:15 Physical Exam - Physical Exam General Appearance: other (minimally responsive on propofol) EENT: PERRL/EOMI, No scleral icterus (R), No scleral icterus (L) Neck: full range of motion, supple Respiratory: lungs clear, normal breath sounds, No respiratory distress Cardiac/Chest: normal peripheral pulses, regular rate, rhythm, No edema Abdomen: normal bowel sounds, non-tender, soft Skin: normal color, warm/dry, No rash Lymphatic: no adenopathy Extremities: normal inspection, No pedal edema Neuro/Psych: other (sedated on vent) ICD10 Worksheet Patient Problems: Problems Problem Status Onset Cardiac arrest Acute
[2016-06-03] MEDS: POTASSIUM Cl (KCl) 100 ML IV SCH ×2 (14:45→16:04)
--- NOTE | 2016-06-03 15:59 | HOSPPROG ---
Hospitalist Progress Note Assessment/Plan: 30 y/o male found down due to suspected heroin overdose # cardiac arrest * status post [facility] protocol # aspiration pneumonia * on Zosyn * looks like right upper lobe atelectasis on chest x-ray yesterday * follow #acute left pneumothorax (traumatic related to cpr) * chest tube * surgery following #anoxic brain injury * posturing with pain but not brain * will have to continue to watch over the next several days for improvement * myoclonus versus seizure * eeg does not reveal any seizure #st depression on initial ekg causing concern for PE not on anticoagulation * echocardiogram does not show any right-sided failure #elevated trop * trending down #EDWIN * not oliguric * creatinine seems to be plateaued #mild rhabdo * improving * shocked liver * improving 35 minutes of critical care time spent Subjective: NO EVENTS Objective: Vital Signs Temp Pulse Resp BP Pulse Ox 36.8 C 109 H 30 H 145/86 H 100 06/03/16 14:00 06/03/16 15:44 06/03/16 15:44 06/03/16 14:00 06/03/16 15:44 Laboratory Results 06/03/16 04:58 06/03/16 04:58 06/02/16 06/03/16 06/04/16 05:59 05:59 05:59 Intake Total 6460.2 4746 Output Total 3624 3570 885 Balance 2836.2 1176 -885 PT 21.1 SEC (12.0-15.0) H 06/01/16 22:15 INR 1.81 (0.83-1.16) H 06/01/16 22:15 - Physical Exam Constitutional: no apparent distress, appears nourished, not in pain Eyes: PERRL ( pupils more briskly reactive) Ears, Nose, Mouth, Throat: moist mucous membranes, hearing normal, ears appear normal, no oral mucosal ulcers Respiratory: no respiratory distress Gastrointestinal: normoactive bowel sounds, soft, non-tender abdomen, no palpable masses Skin: warm Neurologic: other ( posturing with pain, less myoclonic movements) ICD10 Worksheet Patient Problems: Problems Problem Status Onset Cardiac arrest Acute
--- NOTE | 2016-06-03 19:47 | NEUROPROG ---
Assessment: 1. hypoxic ischemic encephalopathy the patient's exam has improved today compared to yesterday. Specifically, pupil reflexes more brisk. Corneal reflex was present bilaterally. Vestibular ocular reflex was present today. It was absent yesterday. Discussed at length with the family. We will continue maximal supportive care. He is full code. Subjective: Continued intermittent shivering Objective: Vital Signs Temp Pulse Resp BP Pulse Ox 37.0 C 116 H 24 H 134/74 H 95 06/03/16 18:00 06/03/16 18:00 06/03/16 18:00 06/03/16 18:00 06/03/16 18:00 Laboratory Results 06/03/16 04:58 06/03/16 04:58 06/02/16 06/03/16 06/04/16 05:59 05:59 05:59 Intake Total 6460.2 4746 661 Output Total 3624 3570 2100 Balance 2836.2 1176 -1439 PT 21.1 SEC (12.0-15.0) H 06/01/16 22:15 INR 1.81 (0.83-1.16) H 06/01/16 22:15 higher mental function- coma brainstem exam - pupils are 4 mm and briskly constrict to light bilaterally ( improved from [email or web address]) corneal reflex was present bilaterally - however inconsistent. vestibular ocular reflex was present today breathing above the ventilator motor exam - no meaningful motor movements. Intermittent spontaneous extensor posturing and extensor posturing occurs to painful stimuli. There is no withdrawal or localization to pain. No seizure activity. Intermittent shivering. Allergies/Adverse Reactions: No Known Allergies Allergy (Verified 05/25/15 09:08)
[2016-06-04] MEDS: PIPERACILLIN/TAZO 2.25 GM/DEX 50 ML IV SCH ×5 (00:18→23:35)
[2016-06-04] MEDS: LORazepam 2 MG/ML INJ IVP PRN ×2 (00:18→07:11)
[2016-06-04 04:51] LABS: IONIZED CALCIUM 1.03 MMOL/L (1.12-1.30)
[2016-06-04 05:06] LABS: % IMMATURE GRANULYOCYTES 0.6 % (0.0-1.1); ABSOLUTE IMMATURE GRANULOCYTES 0.05 10^3/uL (0.00-0.10); ADD DIFF? NO; ADD MORPH? NO; ADD SCAN? NO; ATYPICAL LYMPHOCYTE FLAG 30 (0-99); FRAGMENT RBC FLAG 20 (0-99); HEMATOCRIT 33.8 % (40.0-51.0); HEMOGLOBIN 11.8 g/dL (13.7-17.5); LEFT SHIFT FLG 40 (0-99); LIPEMIA HEMOLYSIS FLAG 90 (0-99); MEAN CELL HEMOGLOBIN 29.8 pg (27.9-34.1); MEAN CELL HEMOGLOBIN CONCENTR. 34.9 g/dL (32.4-36.7); MEAN CELL VOLUME 85.4 fL (81.5-99.8); MEAN PLATELET VOLUME 10.4 fL (8.7-11.7); PLATELET CLUMPS FLAG 0 (0-99); PLATELET COUNT 187 10^3/uL (150-400); RED BLOOD CELL COUNT 3.96 10^6/uL (4.40-6.38); RED CELL DISTRIBUTION WIDTH 13.1 % (11.5-15.2)
[2016-06-04] MEDS ORDERED: CALCIUM GLUCONATE 50 ML IV ONE (05:07)
[2016-06-04 05:19] LABS: ALBUMIN 2.4 g/dL (3.5-5.0); ALKALINE PHOSPHATASE 65 IU/L (38-126); ANION GAP 9 mEq/L (8-16); ASPARTATE AMINOTRANSFERASE 428 IU/L (17-59); BILIRUBIN,TOTAL 1.5 mg/dL (0.1-1.4); CALCIUM 7.8 mg/dL (8.5-10.4); CARBON DIOXIDE 31 mEq/l (22-31); CHLORIDE 104 mEq/L (97-110); CREATININE 3.2 mg/dL (0.7-1.3); GLOMERULAR FILTRATION RATE 23; GLUCOSE 103 mg/dL (70-100); MAGNESIUM 2.5 mg/dL (1.6-2.3); POTASSIUM 3.8 mEq/L (3.5-5.2); SODIUM 144 mEq/L (134-144); TOTAL PROTEIN 4.9 g/dL (6.3-8.2)
[2016-06-04 05:33] LABS: ALANINE AMINOTRANSFERASE 1053 IU/L (21-72)
[2016-06-04] MEDS: HEPARIN 5,000 UNIT/0.5 ML SYR SC SCH ×3 (05:34→21:40)
[2016-06-04] MEDS: PANTOPRAZOLE SODIUM 40 MG in NS 100 ML IV SCH (08:13)
[2016-06-04] MEDS: CHLORHEXIDINE GLUCONATE 15 ML UDL PO SCH ×2 (08:13→21:29)
[2016-06-04] MEDS: levETIRAcetam 500 MG in NS 100 ML IV SCH ×2 (08:16→21:29)
--- NOTE | 2016-06-04 09:08 | SOAPPROG ---
SOAP Progress Note Assessment/Plan: Assessment: Chest tube intact. Awaiting more on prognosis. Can pull either holding vent or when off vent Plan: 06/04/16 09:08 Objective: Vital Signs Temp Pulse Resp BP Pulse Ox 37.5 C 103 H 29 H 147/85 H 97 06/04/16 08:08 06/04/16 08:08 06/04/16 08:08 06/04/16 08:08 06/04/16 08:08 Laboratory Results 06/04/16 04:22 06/04/16 04:22 06/03/16 06/04/16 06/05/16 05:59 05:59 05:59 Intake Total 4746 1345 Output Total 3570 3095 Balance 1176 -1750 PT 21.1 SEC (12.0-15.0) H 06/01/16 22:15 INR 1.81 (0.83-1.16) H 06/01/16 22:15 ICD10 Worksheet Patient Problems: Problems Problem Status Onset Cardiac arrest Acute
--- NOTE | 2016-06-04 09:31 | PDINTPN ---
Swimming Pool Serviceperson Progress Note Assessment/Plan: Assessment/plan: 30 M with hx heroin and cocaine abuse found down for unknown period 05/30/16 and found pulseless and apneic. EMS resuscitated in field after 3 rounds of epi and CPR, plus narcan. Also intubated in field and started hypothermia protocol. Course complicated by rib fractures and PTX requiring chest tube per surgery. Initially hypothermic prior to protocol, and now rewarming. Pressors started to maintain MAP>80 per protocol as well as paralytics for rigors. * cardiac arrest likely2/2 narcotics/cocaine overdose. Prognosis remains guarded at the moment given presentation of hypothermia, and unknown time down. EEG with diffuse slowing at 72 hours post-event, consistent with anoxic brain injury. Given young age, will continue support for now. He may be slightly more responsive todayt to noxious stim. I would avoid benzos and narcotics if possible to avoid complicating his daily neuro exam. * Respiratory failure with hypoxemia 2/2 arrest, PTX, and likely aspiration. Weaned briefly on PS15 on 06/03; retry today. Depending oncourse, may need perc trach. Vent day #5 * PTX 2/2 CPR- tiny apical PTX remains but CT in place without apparent leak. Discussed with surgery. Stable at the moment * PNA- wbc continues to improve. currently treated with Zosyn day #4 * EDWIN- 2/2 arrest. creatinine stable at 3.2 but UOP remains at >2 liters daily. No indication for HD. c/w post ATN diuresis. K= 3.7, hco3 31 off drip * Rhabdo 2/2 arrest- CK peaked at 7198 and falling. Not a large factor for EDWIN * Transaminitis 2/2 shock liver. LFTs continue to fall. * Non-seizure activity on EEG. * * critical care time 45 minutes Subjective: Stable overnight. Rx'd with ativan earlier today for agitation Objective: Vital Signs Temp Pulse Resp BP Pulse Ox 37.5 C 103 H 29 H 147/85 H 97 06/04/16 08:08 06/04/16 08:08 06/04/16 08:08 06/04/16 08:08 06/04/16 08:08 Laboratory Results 06/04/16 04:22 06/04/16 04:22 06/03/16 06/04/16 06/05/16 05:59 05:59 05:59 Intake Total 4746 1345 Output Total 3570 3095 Balance 1176 -1750 PT 21.1 SEC (12.0-15.0) H 06/01/16 22:15 INR 1.81 (0.83-1.16) H 06/01/16 22:15 Physical Exam - Physical Exam General Appearance: no apparent distress, other (minimally responsive) EENT: PERRL/EOMI (more brisk today) Neck: full range of motion, supple Respiratory: lungs clear, normal breath sounds, other (chest tube site clean and dry), No respiratory distress Cardiac/Chest: normal peripheral pulses, regular rate, rhythm, No edema Abdomen: non-tender, soft, No distended Skin: normal color, warm/dry, No rash Lymphatic: no adenopathy Extremities: normal inspection (corneals intact, responds to noxious stim), No pedal edema ICD10 Worksheet Patient Problems: Problems Problem Status Onset Cardiac arrest Acute
[2016-06-04] MEDS ORDERED: HALOPERIDOL LACT 5 MG/ML INJ IVP PRN (13:28)
--- NOTE | 2016-06-04 13:31 | HOSPPROG ---
Hospitalist Progress Note Assessment/Plan: 30 y/o male found down due to suspected heroin overdose # cardiac arrest * status post [facility] protocol # aspiration pneumonia * on Zosyn * looks like right upper lobe atelectasis on chest x-ray yesterday * follow #acute left pneumothorax (traumatic related to cpr) * chest tube * surgery following #anoxic brain injury * posturing with pain * will have to continue to watch over the next several days for improvement * myoclonus versus seizure * eeg does not reveal any seizure #EDWIN * not oliguric * creatinine seems to be plateaued * is edematous but will probably hold off on Lasix at this point #mild rhabdo * improving * shocked liver * improving 35 minutes of critical care time spent Subjective: no new events Objective: Vital Signs Temp Pulse Resp BP Pulse Ox 37.5 C 53 L 20 124/69 H 100 06/04/16 12:00 06/04/16 12:00 06/04/16 12:00 06/04/16 12:00 06/04/16 12:00 Laboratory Results 06/04/16 04:22 06/04/16 04:22 06/03/16 06/04/16 06/05/16 05:59 05:59 05:59 Intake Total 4746 1345 Output Total 3570 3095 Balance 1176 -1750 PT 21.1 SEC (12.0-15.0) H 06/01/16 22:15 INR 1.81 (0.83-1.16) H 06/01/16 22:15 - Physical Exam Constitutional: no apparent distress, appears nourished, not in pain Eyes: PERRL ( brisk pupil response), anicteric sclera, EOMI Cardiovascular: regular rate and rhythym, no murmur, rub, or gallop, edema Respiratory: no respiratory distress, no rales or rhonchi, clear to auscultation Skin: warm Neurologic: other ( flexor response to pain but does not seem to be actively withdrawing) ICD10 Worksheet Patient Problems: Problems Problem Status Onset Cardiac arrest Acute
--- NOTE | 2016-06-04 14:35 | NEUROPROG ---
Assessment: 1. hypoxic ischemic encephalopathy the patient's exam has improved again today compared to yesterday. he is now on a CPAP mode on the ventilator. Pupils are larger at 5-6 mm and briskly constrict to light bilaterally. He now has bilateral, consisting corneal reflexes which are brisk. He has an intact vestibular ocular reflex with some superimposed myoclonus in his eyelids and nystagmoid eye movements. There is no meaningful motor response. With deep nail bed stimuli the patient has extensor posturing. He does turn his head to the side of stimuli. This is reflexive. I had a long discussion with his family member present today. We discussed the incremental improvement in his exam each day. We also discussed care options going forward including tracheostomy, peg tube placement and long-term care in a LTAC. we will discuss further with other family members. Subjective: No significant changes overnight Objective: Vital Signs Temp Pulse Resp BP Pulse Ox 37.5 C 93 29 H 132/87 H 97 06/04/16 12:00 06/04/16 14:00 06/04/16 14:00 06/04/16 14:00 06/04/16 14:00 Laboratory Results 06/04/16 04:22 06/04/16 04:22 06/03/16 06/04/16 06/05/16 05:59 05:59 05:59 Intake Total 4746 1345 Output Total 3570 3095 Balance 1176 -1750 PT 21.1 SEC (12.0-15.0) H 06/01/16 22:15 INR 1.81 (0.83-1.16) H 06/01/16 22:15 HMF: Coma he is now on a CPAP mode on the ventilator. Pupils are larger at 5-6 mm and briskly constrict to light bilaterally. He now has bilateral, consisting corneal reflexes which are brisk. He has an intact vestibular ocular reflex with some superimposed myoclonus in his eyelids and nystagmoid eye movements. There is no meaningful motor response. With deep nail bed stimuli the patient has extensor posturing. He does turn his head to the side of stimuli. This is reflexive. Allergies/Adverse Reactions: No Known Allergies Allergy (Verified 05/25/15 09:08)
[2016-06-05 04:21] LABS: BASE EXCESS 5.1 mEq/L (-2.5-2.5); BICARBONATE 28 mEq/L (22-26); IONIZED CALCIUM 1.13 MMOL/L (1.12-1.30); MEASURED OXYGEN SATURATION 98 % (92-95); PCO2 40 mmHg (34-38); PO2 111 mmHg (65-75); TCO2 30 mEq/L (23-27)
[2016-06-05 04:22] LABS: % IMMATURE GRANULYOCYTES 0.8 % (0.0-1.1); ABSOLUTE IMMATURE GRANULOCYTES 0.06 10^3/uL (0.00-0.10); ADD DIFF? NO; ADD MORPH? NO; ADD SCAN? NO; ATYPICAL LYMPHOCYTE FLAG 40 (0-99); FRAGMENT RBC FLAG 0 (0-99); HEMATOCRIT 33.8 % (40.0-51.0); HEMOGLOBIN 11.5 g/dL (13.7-17.5); LEFT SHIFT FLG 10 (0-99); LIPEMIA HEMOLYSIS FLAG 90 (0-99); MEAN CELL HEMOGLOBIN 30.2 pg (27.9-34.1); MEAN CELL VOLUME 88.7 fL (81.5-99.8); MEAN PLATELET VOLUME 10.7 fL (8.7-11.7); PLATELET CLUMPS FLAG 10 (0-99); PLATELET COUNT 168 10^3/uL (150-400); RED BLOOD CELL COUNT 3.81 10^6/uL (4.40-6.38); RED CELL DISTRIBUTION WIDTH 13.2 % (11.5-15.2)
[2016-06-05 04:23] LABS: CPAP YES; O2 CONCENTRATIION 40 % (0-100); P/F RATIO 278 RATIO; PATIENT RATE 25; PRESSURE SUPPORT 10
[2016-06-05 04:24] LABS: END TIDAL CO2 43
[2016-06-05 04:37] LABS: ALANINE AMINOTRANSFERASE 761 IU/L (21-72); ALBUMIN 2.4 g/dL (3.5-5.0); ALKALINE PHOSPHATASE 76 IU/L (38-126); ANION GAP 8 mEq/L (8-16); ASPARTATE AMINOTRANSFERASE 256 IU/L (17-59); BILIRUBIN,TOTAL 1.3 mg/dL (0.1-1.4); CALCIUM 7.9 mg/dL (8.5-10.4); CARBON DIOXIDE 28 mEq/l (22-31); CHLORIDE 108 mEq/L (97-110); CREATININE 3.1 mg/dL (0.7-1.3); GLOMERULAR FILTRATION RATE 24; GLUCOSE 111 mg/dL (70-100); MAGNESIUM 2.7 mg/dL (1.6-2.3); POTASSIUM 3.6 mEq/L (3.5-5.2); SODIUM 144 mEq/L (134-144); TOTAL PROTEIN 4.9 g/dL (6.3-8.2)
[2016-06-05] MEDS: PIPERACILLIN/TAZO 2.25 GM/DEX 50 ML IV SCH ×3 (06:27→18:42)
[2016-06-05] MEDS: HEPARIN 5,000 UNIT/0.5 ML SYR SC SCH ×3 (06:27→21:37)
[2016-06-05] MEDS: CHLORHEXIDINE GLUCONATE 15 ML UDL PO SCH ×2 (09:33→20:15)
[2016-06-05] MEDS: levETIRAcetam 500 MG in NS 100 ML IV SCH ×2 (09:33→21:38)
[2016-06-05] MEDS: POTASSIUM Cl (KCl) 100 ML IV SCH ×2 (09:34→11:58)
[2016-06-05] MEDS: ACETAMINOPHEN 650 MG/20.3 ML UDCUP PO PRN ×2 (09:35→21:40)
--- NOTE | 2016-06-05 11:10 | SOAPPROG ---
SOAP Progress Note Assessment/Plan: Assessment: Chest tube intact. slight improvements daily. On CPAP. Not following commands. Can pull chest tube either holding vent or when off vent. Dr. Leon rounding this weekend. Please contact him for any issues Plan: 06/04/16 09:08 06/05/16 11:09 Objective: Vital Signs Temp Pulse Resp BP Pulse Ox 37.9 C 69 26 H 130/75 H 98 06/05/16 06:00 06/05/16 06:00 06/05/16 06:00 06/05/16 06:00 06/05/16 06:00 Microbiology 05/30/16 18:19 Blood Culture - Final Blood 05/30/16 18:19 Blood Culture - Final Blood Laboratory Results 06/05/16 04:08 06/05/16 04:08 06/04/16 06/05/16 06/06/16 05:59 05:59 05:59 Intake Total 1345 1437 Output Total 3095 1870 Balance -1750 -433 PT 21.1 SEC (12.0-15.0) H 06/01/16 22:15 INR 1.81 (0.83-1.16) H 06/01/16 22:15 ICD10 Worksheet Patient Problems: Problems Problem Status Onset Cardiac arrest Acute
[2016-06-05] MEDS: PANTOPRAZOLE SODIUM 40 MG in NS 100 ML IV SCH (12:01)
--- NOTE | 2016-06-05 14:08 | PDINTPN ---
Engine Dynamometer Tester Progress Note Assessment/Plan: Assessment/plan: 30 M with hx heroin and cocaine abuse found down for unknown period 05/30/16 and found pulseless and apneic. EMS resuscitated in field after 3 rounds of epi and CPR, plus narcan. Also intubated in field and started hypothermia protocol. Course complicated by rib fractures and PTX requiring chest tube per surgery. Initially hypothermic prior to protocol, and now rewarming. Pressors started to maintain MAP>80 per protocol as well as paralytics for rigors. * cardiac arrest likely 2/2 narcotics/cocaine overdose. Prognosis remains guarded at the moment given presentation of hypothermia, and unknown time down. EEG with diffuse slowing at 72 hours post-event, consistent with anoxic brain injury but no seizure. Given young age, will continue support for now. I would avoid benzos and narcotics if possible to avoid complicating his daily neuro exam. Opened eyes to sternal rub today; a tiny bit of forward progress * Respiratory failure with hypoxemia 2/2 arrest, PTX, and likely aspiration. Vent day #6, but weaning well on minimal PS and good ABG. Dropped to 5 and continue as tolerated. owever, if he is unable to extubate by Wednesday, will proceed with trach/PEG. Discussed with father at bedside. * PTX 2/2 CPR- tiny apical PTX remains but CT in place without apparent leak. Discussed with surgery. Stable at the moment * PNA- wbc continues to improve. currently treated with Zosyn day #5 * EDWIN- 2/2 arrest. creatinine stable at 3.1 but UOP remains at >2 liters daily. No indication for HD. c/w post ATN diuresis. K= 3.7, hco3 31 off drip * Rhabdo 2/2 arrest- CK peaked at 7198 and falling. Not a large factor for EDWIN * Transaminitis 2/2 shock liver. LFTs continue to fall. * Non-seizure activity on EEG. * * critical care time 45 minutes 06/05/16 14:05 Subjective: Some agitation overnight with turning/bathing; but on PS10 for most of last 24 hours. Objective: Vital Signs Temp Pulse Resp BP Pulse Ox 37.9 C 68 27 H 130/75 H 98 06/05/16 06:00 06/05/16 11:49 06/05/16 11:49 06/05/16 06:00 06/05/16 11:49 Microbiology 05/30/16 18:19 Blood Culture - Final Blood 05/30/16 18:19 Blood Culture - Final Blood Laboratory Results 06/05/16 04:08 06/05/16 04:08 06/04/16 06/05/16 06/06/16 05:59 05:59 05:59 Intake Total 1345 1437 Output Total 3095 1870 Balance -1750 -433 PT 21.1 SEC (12.0-15.0) H 06/01/16 22:15 INR 1.81 (0.83-1.16) H 06/01/16 22:15 Physical Exam - Physical Exam General Appearance: unresponsive (largely, but opened eyes to sternal rub), other EENT: PERRL/EOMI, normal ENT inspection Neck: supple Respiratory: lungs clear, normal breath sounds, No respiratory distress Cardiac/Chest: normal peripheral pulses, regular rate, rhythm, No edema Abdomen: non-tender, soft, No distended Skin: normal color, warm/dry, No rash Lymphatic: no adenopathy Extremities: No pedal edema Neuro/Psych: no motor/sensory deficits ICD10 Worksheet Patient Problems: Problems Problem Status Onset Cardiac arrest Acute
--- NOTE | 2016-06-05 15:58 | HOSPPROG ---
Hospitalist Progress Note Assessment/Plan: 30 y/o male found down due to suspected heroin overdose # cardiac arrest * status post [facility] protocol # aspiration pneumonia * on Zosyn day 5 * repeat chest x-ray tomorrow #acute left pneumothorax (traumatic related to cpr) * chest tube * surgery following #anoxic brain injury * posturing with pain * will have to continue to watch over the next several days for improvement * myoclonus versus seizure * eeg does not reveal any seizure * nystagmus like eye movements today seem new to me. Will see what Neurology thinks #EDWIN * not oliguric * creatinine seems to be plateaued * is edematous but will probably hold off on Lasix at this point #mild rhabdo * improving * shocked liver * improving Subjective: no events Objective: Vital Signs Temp Pulse Resp BP Pulse Ox 38.1 C 61 32 H 140/70 H 90 L 06/05/16 14:00 06/05/16 14:00 06/05/16 14:00 06/05/16 14:00 06/05/16 14:00 Microbiology 05/30/16 18:19 Blood Culture - Final Blood 05/30/16 18:19 Blood Culture - Final Blood Laboratory Results 06/05/16 04:08 06/05/16 04:08 06/04/16 06/05/16 06/06/16 05:59 05:59 05:59 Intake Total 1345 1437 Output Total 3095 1870 Balance -1750 -433 PT 21.1 SEC (12.0-15.0) H 06/01/16 22:15 INR 1.81 (0.83-1.16) H 06/01/16 22:15 - Physical Exam Constitutional: no apparent distress, appears nourished, not in pain Eyes: other ( nystagmus type movements downward and to the left) Cardiovascular: regular rate and rhythym, no murmur, rub, or gallop Respiratory: no respiratory distress Gastrointestinal: normoactive bowel sounds, soft, non-tender abdomen, no palpable masses Neurologic: other ( myotonic movements) ICD10 Worksheet Patient Problems: Problems Problem Status Onset Cardiac arrest Acute
--- NOTE | 2016-06-05 16:58 | NEUROPROG ---
Assessment: 1. hypoxic ischemic encephalopathy the patient continues to have small, incremental improvements in exam. plan is to continue maximal supportive care. He is full code. Subjective: No new problems Objective: Vital Signs Temp Pulse Resp BP Pulse Ox 38.1 C 58 L 31 H 140/70 H 95 06/05/16 14:00 06/05/16 16:00 06/05/16 16:00 06/05/16 14:00 06/05/16 16:00 Microbiology 05/30/16 18:19 Blood Culture - Final Blood 05/30/16 18:19 Blood Culture - Final Blood Laboratory Results 06/05/16 04:08 06/05/16 04:08 06/04/16 06/05/16 06/06/16 05:59 05:59 05:59 Intake Total 1345 1437 Output Total 3095 1870 Balance -1750 -433 PT 21.1 SEC (12.0-15.0) H 06/01/16 22:15 INR 1.81 (0.83-1.16) H 06/01/16 22:15 higher mental function: coma brainstem exam - pupils 5-6 mm bilaterally and briskly reactive to light. Patient continues to have brisk corneal reflexes bilaterally. Breathing spontaneously facial myoclonus present along with myoclonus in eye movements (nystagmoid) no posturing today. No withdrawal to pain. no meaningful motor response Allergies/Adverse Reactions: No Known Allergies Allergy (Verified 05/25/15 09:08)
[2016-06-06] MEDS: PIPERACILLIN/TAZO 2.25 GM/DEX 50 ML IV SCH ×4 (00:21→20:17)
[2016-06-06 05:01] LABS: IONIZED CALCIUM 1.15 MMOL/L (1.12-1.30)
[2016-06-06 05:06] LABS: % IMMATURE GRANULYOCYTES 0.4 % (0.0-1.1); ABSOLUTE IMMATURE GRANULOCYTES 0.03 10^3/uL (0.00-0.10); ADD DIFF? NO; ADD MORPH? NO; ADD SCAN? NO; ATYPICAL LYMPHOCYTE FLAG 50 (0-99); FRAGMENT RBC FLAG 0 (0-99); HEMATOCRIT 31.8 % (40.0-51.0); HEMOGLOBIN 10.8 g/dL (13.7-17.5); LEFT SHIFT FLG 10 (0-99); LIPEMIA HEMOLYSIS FLAG 90 (0-99); MEAN CELL HEMOGLOBIN 29.8 pg (27.9-34.1); MEAN CELL VOLUME 87.6 fL (81.5-99.8); MEAN PLATELET VOLUME 11.2 fL (8.7-11.7); PLATELET CLUMPS FLAG 10 (0-99); PLATELET COUNT 130 10^3/uL (150-400); RED BLOOD CELL COUNT 3.63 10^6/uL (4.40-6.38); RED CELL DISTRIBUTION WIDTH 13.1 % (11.5-15.2)
[2016-06-06 05:27] LABS: ALANINE AMINOTRANSFERASE 551 IU/L (21-72); ALBUMIN 2.4 g/dL (3.5-5.0); ALKALINE PHOSPHATASE 71 IU/L (38-126); ANION GAP 7 mEq/L (8-16); ASPARTATE AMINOTRANSFERASE 179 IU/L (17-59); CALCIUM 7.7 mg/dL (8.5-10.4); CARBON DIOXIDE 26 mEq/l (22-31); CHLORIDE 115 mEq/L (97-110); CREATININE 3.2 mg/dL (0.7-1.3); GLOMERULAR FILTRATION RATE 23; GLUCOSE 102 mg/dL (70-100); POTASSIUM 3.8 mEq/L (3.5-5.2); SODIUM 148 mEq/L (134-144); TOTAL PROTEIN 4.9 g/dL (6.3-8.2)
[2016-06-06] MEDS: HEPARIN 5,000 UNIT/0.5 ML SYR SC SCH ×3 (06:27→21:25)
[2016-06-06] MEDS: PANTOPRAZOLE SODIUM 40 MG in NS 100 ML IV SCH (10:00)
[2016-06-06] MEDS: CHLORHEXIDINE GLUCONATE 15 ML UDL PO SCH ×2 (10:43→20:17)
[2016-06-06] MEDS: levETIRAcetam 500 MG in NS 100 ML IV SCH ×2 (11:50→21:26)
--- NOTE | 2016-06-06 12:12 | SOAPPROG ---
SOAP Progress Note Assessment/Plan: Assessment/Plan 30yo M s/p traumatic L PTX s/p chest compressions - CXR this AM shows equivocal ptx, chest has otherwise been stable as well as his vent settings. Given scant output of CT will plan to d/c today. Would get CXR in AM to ensure that lung is still completely up. Will sign off after removal 06/06/16 12:10 Subjective: Intubated, eyes open but not following commands for me Objective: Vital Signs Temp Pulse Resp BP Pulse Ox 38.2 C 53 L 33 H 137/77 H 99 06/06/16 04:00 06/06/16 08:00 06/06/16 06:00 06/06/16 06:00 06/06/16 08:00 Microbiology 05/31/16 22:30 Blood Culture - Final Blood 05/31/16 22:30 Blood Culture - Final Blood 05/31/16 10:00 Blood Culture - Final Blood 05/31/16 10:00 Blood Culture - Final Blood 05/30/16 18:19 Blood Culture - Final Blood 05/30/16 18:19 Blood Culture - Final Blood Laboratory Results 06/06/16 04:37 06/06/16 04:37 06/05/16 06/06/16 06/07/16 05:59 05:59 05:59 Intake Total 1437 1217 792 Output Total 1870 1550 20 Balance -433 -333 772 PT 21.1 SEC (12.0-15.0) H 06/01/16 22:15 INR 1.81 (0.83-1.16) H 06/01/16 22:15 ICD10 Worksheet Patient Problems: Problems Problem Status Onset Cardiac arrest Acute
--- NOTE | 2016-06-06 13:30 | PDINTPN ---
Pool Coordinator Progress Note Assessment/Plan: Assessment/plan: 30 M with hx heroin and cocaine abuse found down for unknown period 05/30/16 and found pulseless and apneic. EMS resuscitated in field after 3 rounds of epi and CPR, plus narcan. Also intubated in field and started hypothermia protocol. Course complicated by rib fractures and PTX requiring chest tube per surgery. Initially hypothermic prior to protocol, and now rewarming. Pressors started to maintain MAP>80 per protocol as well as paralytics for rigors. * cardiac arrest likely 2/2 narcotics/cocaine overdose. Prognosis remains guarded at the moment given presentation of hypothermia, and unknown time down. EEG with diffuse slowing at 72 hours post-event, consistent with anoxic brain injury but no seizure. Given young age, will continue support for now. I would avoid benzos and narcotics if possible to avoid complicating his daily neuro exam. Small but steady improvement daily. * Respiratory failure with hypoxemia 2/2 arrest, PTX, and likely aspiration. Vent day #7, but weaning well on minimal PS and good ABG. Planning trach/PEG for wednesday. Surgery will do trach. Will contact GI in AM tomorrow * PTX 2/2 CPR- resolved. Agree with dc chest tube. * PNA- wbc continues to improve. currently treated with Zosyn day #6 * EDWIN- 2/2 arrest. creatinine stable but UOP remains at >2 liters daily. No indication for HD. c/w post ATN diuresis. * Rhabdo 2/2 arrest- Resolved. CK peaked at 7198 and falling. Not a large factor for EDWIN * Transaminitis 2/2 shock liver. LFTs continue to fall. * Non-seizure activity on EEG. * * critical care time 45 minutes Subjective: Eyes opening spontaneously today Objective: Vital Signs Temp Pulse Resp BP Pulse Ox 38.2 C 60 33 H 137/77 H 98 06/06/16 04:00 06/06/16 12:00 06/06/16 06:00 06/06/16 06:00 06/06/16 12:00 Microbiology 05/31/16 22:30 Blood Culture - Final Blood 05/31/16 22:30 Blood Culture - Final Blood 05/31/16 10:00 Blood Culture - Final Blood 05/31/16 10:00 Blood Culture - Final Blood 05/30/16 18:19 Blood Culture - Final Blood 05/30/16 18:19 Blood Culture - Final Blood Laboratory Results 06/06/16 04:37 06/06/16 04:37 06/05/16 06/06/16 06/07/16 05:59 05:59 05:59 Intake Total 1437 1217 792 Output Total 1870 1550 20 Balance -433 -333 772 PT 21.1 SEC (12.0-15.0) H 06/01/16 22:15 INR 1.81 (0.83-1.16) H 06/01/16 22:15 Physical Exam - Physical Exam General Appearance: obtunded EENT: PERRL/EOMI Neck: supple Respiratory: lungs clear, normal breath sounds, No respiratory distress Cardiac/Chest: normal peripheral pulses, regular rate, rhythm, No edema Abdomen: normal bowel sounds, non-tender, soft Skin: normal color, warm/dry, No rash Lymphatic: no adenopathy Extremities: No pedal edema Neuro/Psych: No abnormal title attorney [id number] ICD10 Worksheet Patient Problems: Problems Problem Status Onset Cardiac arrest Acute
--- NOTE | 2016-06-06 13:54 | HOSPPROG ---
Hospitalist Progress Note Assessment/Plan: # anoxic brain injury - slow incremental improvements # heroin overdose # acute resp failure s/p intubation - continue vent support - likely get tracheostomy soon # pneumothorax, traumatic - chest tube removed today # acute kidney injury, making urine, electrolytes okay - follow daily # aspiration pneumonia - Zosyn #7 # mild rhabdomyolysis # mild troponin elevation # shock liver, coagulopathy # nutrition: Tube feeds - likely PEG soon # hypernatremia - increase free water flushes # FCFT # SQH ## 35 minutes of floor critical care time Subjective: Opening his eyes spontaneously today Objective: Vital Signs Temp Pulse Resp BP Pulse Ox 38.2 C 60 33 H 137/77 H 98 06/06/16 04:00 06/06/16 12:00 06/06/16 06:00 06/06/16 06:00 06/06/16 12:00 Microbiology 05/31/16 22:30 Blood Culture - Final Blood 05/31/16 22:30 Blood Culture - Final Blood 05/31/16 10:00 Blood Culture - Final Blood 05/31/16 10:00 Blood Culture - Final Blood Laboratory Results 06/06/16 04:37 06/06/16 04:37 06/05/16 06/06/16 06/07/16 05:59 05:59 05:59 Intake Total 1437 1217 792 Output Total 1870 1550 20 Balance -433 -333 772 PT 21.1 SEC (12.0-15.0) H 06/01/16 22:15 INR 1.81 (0.83-1.16) H 06/01/16 22:15 Vitals reviewed ET tube in place Nonresponsive, lying in bed, head turn left, multiple saccadic eye movements Regular rate and rhythm, no murmurs rubs or gallops No respiratory distress, lungs clear to auscultation bilaterally, no wheezes or rales Abdomen soft nontender, nondistended, no hepatosplenomegaly ICD10 Worksheet Patient Problems: Problems Problem Status Onset Cardiac arrest Acute
--- NOTE | 2016-06-06 15:18 | NEUROPROG ---
Assessment: 1. hypoxic ischemic encephalopathy 35 minutes in total patient face time with patient and family including a care conference; over 50% in counseling regarding overall plan of care: specifically discussed the patient's small incremental improvements in brainstem exam findings over the week. We discussed continued guarded prognosis for overall neurologic recovery. We had a lengthy and detailed counseling regarding options of ongoing care. The family understands risks, benefits and alternatives of each choice and has decided for tracheostomy, peg tube and placement into LTAC to give him more time to see if there is further neurologic recovery. that is reasonable based on his trajectory of improving each day. they understand that plateauing at some point later into a persistent vegetative state or minimally conscious status is possible and that withdrawal of care may be readdressed at that time. We also discussed the role of neuroimaging at this point. As they are firm in their decision give him more time, neuroimaging may serve only to cloud the situation. therefore we will hold off on further neuroimaging now and it certainly can be readdressed at a later time. We will sign off at this time and continue to follow as needed. Please do not hesitate to call the Neurology service for any questions or changes in neurologic status. Subjective: no new problems, chest tube removed Objective: Vital Signs Temp Pulse Resp BP Pulse Ox 38.5 C H 52 L 29 H 133/77 H 98 06/06/16 14:00 06/06/16 14:00 06/06/16 14:00 06/06/16 14:00 06/06/16 14:00 Microbiology 05/31/16 22:30 Blood Culture - Final Blood 05/31/16 22:30 Blood Culture - Final Blood 05/31/16 10:00 Blood Culture - Final Blood 05/31/16 10:00 Blood Culture - Final Blood Laboratory Results 06/06/16 04:37 06/06/16 04:37 06/05/16 06/06/16 06/07/16 05:59 05:59 05:59 Intake Total 1437 1217 792 Output Total 1870 1550 20 Balance -433 -333 772 PT 21.1 SEC (12.0-15.0) H 06/01/16 22:15 INR 1.81 (0.83-1.16) H 06/01/16 22:15 higher mental function - no meaningful response brainstem - pupils 5-6 mm and briskly responsive bilaterally corneal reflex briskly responsive bilaterally the patient is breathing spontaneously on CPAP there is less myoclonus in the face today and continued myoclonus in small eye movements (nystagmoid) no withdrawal to pain, no posturing Allergies/Adverse Reactions: No Known Allergies Allergy (Verified 05/25/15 09:08)
[2016-06-06] MEDS: ACETAMINOPHEN 650 MG/20.3 ML UDCUP PO PRN (21:25)
[2016-06-07] MEDS: PIPERACILLIN/TAZO 2.25 GM/DEX 50 ML IV SCH ×4 (01:17→18:19)
[2016-06-07 04:55] LABS: IONIZED CALCIUM 1.04 MMOL/L (1.12-1.30)
[2016-06-07 04:57] LABS: % IMMATURE GRANULYOCYTES 0.5 % (0.0-1.1); ABSOLUTE IMMATURE GRANULOCYTES 0.04 10^3/uL (0.00-0.10); ADD DIFF? NO; ADD MORPH? NO; ADD SCAN? NO; ATYPICAL LYMPHOCYTE FLAG 30 (0-99); FRAGMENT RBC FLAG 0 (0-99); HEMATOCRIT 32.4 % (40.0-51.0); HEMOGLOBIN 10.7 g/dL (13.7-17.5); LEFT SHIFT FLG 0 (0-99); LIPEMIA HEMOLYSIS FLAG 80 (0-99); MEAN CELL VOLUME 90.8 fL (81.5-99.8); MEAN PLATELET VOLUME 11.9 fL (8.7-11.7); PLATELET CLUMPS FLAG 10 (0-99); PLATELET COUNT 131 10^3/uL (150-400); RED BLOOD CELL COUNT 3.57 10^6/uL (4.40-6.38); RED CELL DISTRIBUTION WIDTH 13.2 % (11.5-15.2)
[2016-06-07 05:12] LABS: ALANINE AMINOTRANSFERASE 414 IU/L (21-72); ALBUMIN 2.4 g/dL (3.5-5.0); ALKALINE PHOSPHATASE 64 IU/L (38-126); ANION GAP 7 mEq/L (8-16); ASPARTATE AMINOTRANSFERASE 128 IU/L (17-59); BILIRUBIN,TOTAL 0.8 mg/dL (0.1-1.4); CALCIUM 7.9 mg/dL (8.5-10.4); CARBON DIOXIDE 25 mEq/l (22-31); CHLORIDE 118 mEq/L (97-110); GLOMERULAR FILTRATION RATE 25; GLUCOSE 121 mg/dL (70-100); SODIUM 150 mEq/L (134-144)
[2016-06-07] MEDS: HEPARIN 5,000 UNIT/0.5 ML SYR SC SCH ×3 (06:50→21:14)
[2016-06-07] MEDS: CHLORHEXIDINE GLUCONATE 15 ML UDL PO SCH ×2 (08:33→21:12)
[2016-06-07] MEDS: levETIRAcetam 500 MG in NS 100 ML IV SCH ×2 (08:33→21:14)
[2016-06-07] MEDS: PANTOPRAZOLE SODIUM 40 MG in NS 100 ML IV SCH (08:34)
[2016-06-07 08:39] LABS: BASE EXCESS 2.1 mEq/L (-2.5-2.5); BICARBONATE 25 mEq/L (22-26); CPAP YES; MEASURED OXYGEN SATURATION 98 % (92-95); O2 CONCENTRATIION 40 % (0-100); P/F RATIO 293 RATIO; PATIENT RATE 33; PCO2 37 mmHg (34-38); PO2 117 mmHg (65-75); TCO2 26 mEq/L (23-27)
[2016-06-07 08:40] LABS: PRESSURE SUPPORT 5
[2016-06-07] MEDS ORDERED: D5W 1,000 ML IV SCH (09:45)
--- NOTE | 2016-06-07 11:32 | HOSPPROG ---
Hospitalist Progress Note Assessment/Plan: # anoxic brain injury - slow incremental improvements - not following commands # heroin overdose # acute resp failure s/p intubation - continue vent support - likely get tracheostomy soon # pneumothorax, traumatic - chest tube removed today # acute kidney injury, making urine, electrolytes okay # fever - repeat CXR ok; check c. dif if has diarrhea - follow daily # aspiration pneumonia - Zosyn day#8 # mild rhabdomyolysis # mild troponin elevation # shock liver, coagulopathy # nutrition: Tube feeds - likely PEG soon # hypernatremia - cont free water flushes - D5W bolus today # FCFT # SQH ## 35 minutes of floor critical care time Subjective: faster, more shallow respirs Objective: Vital Signs Temp Pulse Resp BP Pulse Ox 38.7 C H 55 L 32 H 130/75 H 98 06/07/16 06:00 06/07/16 08:15 06/07/16 06:00 06/07/16 06:00 06/07/16 08:15 Microbiology 05/31/16 22:30 Blood Culture - Final Blood 05/31/16 22:30 Blood Culture - Final Blood 05/31/16 10:00 Blood Culture - Final Blood 05/31/16 10:00 Blood Culture - Final Blood Laboratory Results 06/07/16 04:35 06/07/16 04:35 06/06/16 06/07/16 06/08/16 05:59 05:59 05:59 Intake Total 1217 2685 Output Total 1550 1770 Balance -333 915 PT 21.1 SEC (12.0-15.0) H 06/01/16 22:15 INR 1.81 (0.83-1.16) H 06/01/16 22:15 Vitals reviewed Pleasant, no acute distress ET tube Regular rate and rhythm, no murmurs rubs or gallops Shallow respirs, tachypneic, coarse BS, no rales Abdomen soft nontender, nondistended, no hepatosplenomegaly ICD10 Worksheet Patient Problems: Problems Problem Status Onset Cardiac arrest Acute
[2016-06-07] MEDS: ACETAMINOPHEN 650 MG/20.3 ML UDCUP PO PRN (11:53)
--- NOTE | 2016-06-07 12:16 | PDINTPN ---
Mold Sprayer Progress Note Assessment/Plan: Assessment/plan: 30 M with hx heroin and cocaine abuse found down for unknown period 05/30/16 and found pulseless and apneic. EMS resuscitated in field after 3 rounds of epi and CPR, plus narcan. Also intubated in field and started hypothermia protocol. Course complicated by rib fractures and PTX requiring chest tube per surgery. Initially hypothermic prior to protocol. Pressors started to maintain MAP>80 per protocol as well as paralytics for rigors. Has been stable last several days , with small incremental improvements most days. Neuro signed off 06/06. * cardiac arrest likely 2/2 narcotics/cocaine overdose. Prognosis remains guarded at the moment given presentation of hypothermia, and unknown time down. EEG with diffuse slowing at 72 hours post-event, consistent with anoxic brain injury but no seizure. Given young age, will continue support for now. I would avoid benzos and narcotics if possible to avoid complicating his daily neuro exam. He is less responsive today but I suspect this is related to normal ebb and flow of recovery. Dr. Da Silva and I had a lengthy discussion with family 06/06 regarding prognosis and his progress to date which can plateau at any time. * Respiratory failure with hypoxemia 2/2 arrest, PTX, and likely aspiration. Vent day #8, but weaning well on minimal PS and repeatedly stable ABG ( including today). Will increase PS and consider intermittent AC if WOB appears uncomfortable, but stress ongoing minimal support to avoid respiratpory muscle atrophy. Once trach placed, would attempt TC weans as tolerated. Planning trach/ PEG for wednesday. Surgery will do trach. Will contact GI in AM tomorrow * PTX 2/2 CPR- resolved. Chest tube dc'd 06/06. Repeat CXR 06/07 without left PTX and resolution of mild RUL atelectasis * PNA- wbc continues to improve. currently treated with Zosyn day #8, but Tm 38.8. No evidence of infection on todays CXR. Loose stool but not rosalind diarrhea (low threshold to check Cdiff). UA sent. Recheck Bcx if continued fever. * EDWIN- 2/2 arrest. creatinine hovering around 3.0 but may be trending down today. UOP remains at >2 liters daily. No indication for HD. c/w post ATN diuresis. * Rhabdo 2/2 arrest- Resolved. CK peaked at 7198 and falling. Not a large factor for EDWIN * Transaminitis 2/2 shock liver. LFTs continue to fall. * Non-seizure activity on EEG. * Hypernatremia- Ns rising on TF. Starting FW replacement * Dispo: family starting to eval LTACH's. Stable for transfer once trach/PEG completed without complication * critical care time 45 minutes 06/07/16 12:10 06/07/16 12:17 Subjective: Slightly less responsive today. Increased WOB Objective: Vital Signs Temp Pulse Resp BP Pulse Ox 38.8 C H 56 L 28 H 127/69 H 98 06/07/16 12:00 06/07/16 12:00 06/07/16 12:00 06/07/16 12:00 06/07/16 12:00 Microbiology 05/31/16 22:30 Blood Culture - Final Blood 05/31/16 22:30 Blood Culture - Final Blood 05/31/16 10:00 Blood Culture - Final Blood 05/31/16 10:00 Blood Culture - Final Blood Laboratory Results 06/07/16 04:35 06/07/16 04:35 06/06/16 06/07/16 06/08/16 05:59 05:59 05:59 Intake Total 1217 2685 Output Total 1550 1770 Balance -333 915 PT 21.1 SEC (12.0-15.0) H 06/01/16 22:15 INR 1.81 (0.83-1.16) H 06/01/16 22:15 Physical Exam - Physical Exam General Appearance: obtunded EENT: PERRL/EOMI Neck: supple Respiratory: lungs clear, normal breath sounds, No respiratory distress Cardiac/Chest: normal peripheral pulses, regular rate, rhythm, No edema Abdomen: non-tender, soft, No distended Skin: normal color, warm/dry, No rash Lymphatic: no adenopathy Extremities: No pedal edema, No swelling Neuro/Psych: other (minimal response to noxious stim today), No abnormal worksite wellness practitioner II- XII, No facial droop ICD10 Worksheet Patient Problems: Problems Problem Status Onset Cardiac arrest Acute
[2016-06-07] MEDS ORDERED: CALCIUM GLUCONATE 50 ML IV ONE (12:31)
[2016-06-07 14:50] LABS: COLOR YELLOW; LEUKOCYTE ESTERASE,URINE NEGATIVE (NEGATIVE); NITRITE,URINE NEGATIVE (NEGATIVE)
[2016-06-07 15:04] LABS: RBC,URINE 15-25 /hpf (0-3)
[2016-06-08] MEDS: PIPERACILLIN/TAZO 2.25 GM/DEX 50 ML IV SCH ×4 (00:01→18:11)
[2016-06-08 04:37] LABS: % IMMATURE GRANULYOCYTES 0.5 % (0.0-1.1); ABSOLUTE IMMATURE GRANULOCYTES 0.05 10^3/uL (0.00-0.10); ADD DIFF? NO; ADD MORPH? NO; ADD SCAN? NO; ATYPICAL LYMPHOCYTE FLAG 10 (0-99); FRAGMENT RBC FLAG 0 (0-99); HEMATOCRIT 32.4 % (40.0-51.0); HEMOGLOBIN 11.1 g/dL (13.7-17.5); LEFT SHIFT FLG 0 (0-99); LIPEMIA HEMOLYSIS FLAG 90 (0-99); MEAN CELL HEMOGLOBIN 30.6 pg (27.9-34.1); MEAN CELL HEMOGLOBIN CONCENTR. 34.3 g/dL (32.4-36.7); MEAN CELL VOLUME 89.3 fL (81.5-99.8); MEAN PLATELET VOLUME 12.4 fL (8.7-11.7); PLATELET CLUMPS FLAG 10 (0-99); PLATELET COUNT 138 10^3/uL (150-400); RED BLOOD CELL COUNT 3.63 10^6/uL (4.40-6.38); RED CELL DISTRIBUTION WIDTH 13.2 % (11.5-15.2)
[2016-06-08 04:48] LABS: IONIZED CALCIUM 1.16 MMOL/L (1.12-1.30)
[2016-06-08 05:10] LABS: ANION GAP 8 mEq/L (8-16); CARBON DIOXIDE 25 mEq/l (22-31); CHLORIDE 114 mEq/L (97-110); CREATININE 2.9 mg/dL (0.7-1.3); GLOMERULAR FILTRATION RATE 26; GLUCOSE 96 mg/dL (70-100); POTASSIUM 3.9 mEq/L (3.5-5.2); SODIUM 147 mEq/L (134-144)
[2016-06-08] MEDS: ACETAMINOPHEN 650 MG/20.3 ML UDCUP PO PRN (05:48)
[2016-06-08] MEDS: levETIRAcetam 500 MG in NS 100 ML IV SCH ×2 (08:04→21:11)
--- NOTE | 2016-06-08 09:20 | PDINTPN ---
Branch Manager Trainee Progress Note Assessment/Plan: Assessment: 30 M with hx heroin and cocaine abuse found down for unknown period 05/30/16 and found pulseless and apneic. EMS resuscitated in field after 3 rounds of epi and CPR, plus narcan. Also intubated in field and started hypothermia protocol. Course complicated by rib fractures and PTX requiring chest tube per surgery. Initially hypothermic prior to protocol. Pressors started to maintain MAP>80 per protocol as well as paralytics for rigors. Has been stable last several days , with small incremental improvements most days. Neuro signed off 06/06. * cardiac arrest likely 2/2 narcotics/cocaine overdose. Prognosis remains guarded at the moment given presentation of hypothermia, and unknown time down. EEG with diffuse slowing at 72 hours post-event, consistent with anoxic brain injury but no seizure. Given young age, will continue support for now. I would avoid benzos and narcotics if possible to avoid complicating his daily neuro exam. Neurology following. * Respiratory failure with hypoxemia 2/2 arrest, PTX, and likely aspiration. Vent day #9, but weaning well on minimal PS and repeatedly stable ABG ( including today). Will increase PS and consider intermittent AC if WOB appears uncomfortable, but stress ongoing minimal support to avoid respiratpory muscle atrophy. Once trach placed, would attempt TC weans as tolerated. Planning trach/ PEG for Wednesday with surgery * PTX 2/2 CPR- resolved. Chest tube dc'd 06/06. Repeat CXR 06/07 without left PTX and resolution of mild RUL atelectasis * PNA- wbc continues to improve. currently treated with Zosyn day #8, but Tm 38.8. No evidence of infection on todays CXR. Loose stool but not rosalind diarrhea (low threshold to check Cdiff). UA sent. Recheck Bcx if continued fever. * EDWIN- 2/2 arrest. Cr still elevated but falling a bit last few days. Good urine output. Fluid balance still about 10L positive since admit. * Rhabdo 2/2 arrest- Resolved. CK peaked at 7198 and falling. Not a large factor for EDWIN * Transaminitis 2/2 shock liver. LFTs continue to fall. * Non-seizure activity on EEG. * Hypernatremia- Ns high but falling a bit with free water replacement. * Dispo: family starting to eval LTACH's. Stable for transfer once trach/PEG completed (tentative plan for 06/09). Plan: Trach/PEG 06/09 Continue vent support. D/C sedation Complete 10d of Zosyn Trial of lasix, follow Na and Cr D/W RN, RT, Gen Surgery 40 minutes cc time 06/08/16 10:57 Subjective: Intubated, unresponsive Objective: Vital Signs Temp Pulse Resp BP Pulse Ox 38.1 C 50 L 22 H 135/75 H 98 06/08/16 08:00 06/08/16 08:00 06/08/16 08:00 06/08/16 08:00 06/08/16 08:00 Laboratory Results 06/08/16 04:20 06/08/16 04:20 06/07/16 06/08/16 06/09/16 05:59 05:59 05:59 Intake Total 2685 3953 Output Total 1770 1600 Balance 915 2353 PT 21.1 SEC (12.0-15.0) H 06/01/16 22:15 INR 1.81 (0.83-1.16) H 06/01/16 22:15 Physical Exam - Physical Exam General Appearance: alert, no apparent distress EENT: ET tube Neck: normal inspection Respiratory: chest non-tender, lungs clear, normal breath sounds Cardiac/Chest: regular rate, rhythm, edema (1+) Abdomen: normal bowel sounds, non-tender, soft Skin: normal color, warm/dry Extremities: normal range of motion, non-tender, normal inspection Neuro/Psych: other (Inconsistently opens eyes to loud voice. Wandering conjugate eye movements, not reliably tracking. Weak gag/cough. No) ICD10 Worksheet Patient Problems: Problems Problem Status Onset Cardiac arrest Acute
[2016-06-08] MEDS ORDERED: FUROSEMIDE 20 MG/2 ML VIAL IVP ONE (09:56)
[2016-06-08] MEDS: PANTOPRAZOLE SODIUM 40 MG in NS 100 ML IV SCH (10:06)
[2016-06-08] MEDS: CHLORHEXIDINE GLUCONATE 15 ML UDL PO SCH ×2 (10:06→19:21)
--- NOTE | 2016-06-08 11:19 | HOSPPROG ---
Hospitalist Progress Note Assessment/Plan: # anoxic brain injury - slow incremental improvements - not following commands - trach/PEG tomorrow # heroin overdose # acute resp failure s/p intubation - continue vent support # pneumothorax, traumatic - chest tube removed # volume status - lasix today # acute kidney injury, making urine, electrolytes okay # fever/mild WBC elevation - no evidence of infection # aspiration pneumonia - Zosyn day#9 # mild rhabdomyolysis # mild troponin elevation # shock liver, coagulopathy # nutrition: Tube feeds # hypernatremia - better today - cont free water flushes # FCFT # SQH ## 35 minutes of floor critical care time Subjective: No significant clinical change Objective: Vital Signs Temp Pulse Resp BP Pulse Ox 38.1 C 50 L 22 H 135/75 H 98 06/08/16 08:00 06/08/16 08:00 06/08/16 08:00 06/08/16 08:00 06/08/16 08:00 Laboratory Results 06/08/16 04:20 06/08/16 04:20 06/07/16 06/08/16 06/09/16 05:59 05:59 05:59 Intake Total 2685 3953 Output Total 1770 1600 Balance 915 2353 PT 21.1 SEC (12.0-15.0) H 06/01/16 22:15 INR 1.81 (0.83-1.16) H 06/01/16 22:15 Vitals reviewed not responding, not following commands Regular rate and rhythm, no murmurs rubs or gallops No respiratory distress, lungs clear to auscultation bilaterally, no wheezes or rales Abdomen soft nontender, nondistended, no hepatosplenomegaly ET tube in place ICD10 Worksheet Patient Problems: Problems Problem Status Onset Cardiac arrest Acute
[2016-06-08] MEDS: HEPARIN 5,000 UNIT/0.5 ML SYR SC SCH ×3 (14:35→21:11)
[2016-06-09] MEDS: PIPERACILLIN/TAZO 2.25 GM/DEX 50 ML IV SCH ×4 (00:01→18:36)
[2016-06-09 04:42] LABS: IONIZED CALCIUM 1.18 MMOL/L (1.12-1.30)
[2016-06-09 04:57] LABS: ANION GAP 7 mEq/L (8-16); CALCIUM 8.3 mg/dL (8.5-10.4); CARBON DIOXIDE 25 mEq/l (22-31); CHLORIDE 115 mEq/L (97-110); CREATININE 2.7 mg/dL (0.7-1.3); GLOMERULAR FILTRATION RATE 28; GLUCOSE 93 mg/dL (70-100); SODIUM 147 mEq/L (134-144)
[2016-06-09 04:58] LABS: % IMMATURE GRANULYOCYTES 0.4 % (0.0-1.1); ABSOLUTE IMMATURE GRANULOCYTES 0.04 10^3/uL (0.00-0.10); ADD DIFF? NO; ADD MORPH? NO; ADD SCAN? NO; ATYPICAL LYMPHOCYTE FLAG 20 (0-99); FRAGMENT RBC FLAG 0 (0-99); HEMATOCRIT 32.8 % (40.0-51.0); HEMOGLOBIN 11.1 g/dL (13.7-17.5); LEFT SHIFT FLG 0 (0-99); LIPEMIA HEMOLYSIS FLAG 90 (0-99); MEAN CELL HEMOGLOBIN 29.8 pg (27.9-34.1); MEAN CELL HEMOGLOBIN CONCENTR. 33.8 g/dL (32.4-36.7); MEAN CELL VOLUME 87.9 fL (81.5-99.8); MEAN PLATELET VOLUME 12.8 fL (8.7-11.7); PLATELET CLUMPS FLAG 0 (0-99); PLATELET COUNT 167 10^3/uL (150-400); RED BLOOD CELL COUNT 3.73 10^6/uL (4.40-6.38)
[2016-06-09 08:24] LABS: INR 1.17 (0.83-1.16); PROTIME(PATIENT) 14.9 SEC (12.0-15.0)
--- NOTE | 2016-06-09 09:28 | HOSPPROG ---
Hospitalist Progress Note Assessment/Plan: # anoxic brain injury - no improvement in 24 hours; will continue full support given age - trach/PEG today # heroin overdose # acute resp failure s/p intubation - continue vent support # pneumothorax, traumatic - chest tube removed # volume status - lasix today # acute kidney injury, making urine, electrolytes okay - slowly improving # fever/mild WBC elevation - no evidence of infection # aspiration pneumonia - Zosyn day#10 - dc soon # mild rhabdomyolysis # mild troponin elevation # shock liver, coagulopathy # nutrition: Tube feeds # hypernatremia - better today - cont free water flushes - slight increase today # FCFT # SQH ## 35 minutes of floor critical care time Subjective: No significant changes overnight Objective: Vital Signs Temp Pulse Resp BP Pulse Ox 38 C 63 28 H 125/91 H 99 06/09/16 06:00 06/09/16 08:16 06/09/16 08:16 06/09/16 08:16 06/09/16 08:16 Laboratory Results 06/09/16 04:25 06/09/16 04:25 06/08/16 06/09/16 06/10/16 05:59 05:59 05:59 Intake Total 3953 2321 Output Total 1600 2000 Balance 2353 321 PT 14.9 SEC (12.0-15.0) 06/09/16 07:50 INR 1.17 (0.83-1.16) H 06/09/16 07:50 Lying in bed, appears somewhat uncomfortable Eyes with saccadic movements; pupils reactive Endotracheal tube in place Regular rate and rhythm, no murmurs rubs or gallops Lungs with coarse breath sounds throughout, no rales, rhonchi, wheezes Abdomen soft nontender nondistended no hepatosplenomegaly ICD10 Worksheet Patient Problems: Problems Problem Status Onset Cardiac arrest Acute
[2016-06-09] MEDS: levETIRAcetam 500 MG in NS 100 ML IV SCH ×2 (10:46→20:43)
[2016-06-09] MEDS: PANTOPRAZOLE SODIUM 40 MG in NS 100 ML IV SCH (11:59)
[2016-06-09] MEDS ORDERED: PROPOFOL 200 MG/20 ML VIAL ONE ×2 (14:37→15:05)
[2016-06-09] MEDS ORDERED: fentaNYL 100 MCG/2 ML INJ ONE (14:37)
[2016-06-09] MEDS ORDERED: ROCURONIUM 50 MG/5 ML VIAL ONE (15:05)
--- NOTE | 2016-06-09 15:50 | POSTOPPROG ---
Post Op Note Date of Operation: 06/09/16 Surgeon: Logan Leon Sugar Laboratory Assistant: Chas Anesthesiologist: Jose M Anesthesia: GET(General Endotracheal) Pre-op Diagnosis: resp failure Post-op Diagnosis: same Procedure: open tracheostomy Findings: 8.0 cuffed Inf/Abcess present in the surg proc area at time of surgery?: No EBL: Minimal
--- NOTE | 2016-06-09 16:14 | PDINTPN ---
Research Support Specialist Progress Note Assessment/Plan: Assessment: 30 M with hx heroin and cocaine abuse found down for unknown period 05/30/16 and found pulseless and apneic. EMS resuscitated in field after 3 rounds of epi and CPR, plus narcan. Also intubated in field and started hypothermia protocol. Course complicated by rib fractures and PTX requiring chest tube per surgery. Initially hypothermic prior to protocol. Pressors started to maintain MAP>80 per protocol as well as paralytics for rigors. Has been stable last several days , with small incremental improvements most days. Neuro signed off 06/06. * cardiac arrest likely 2/2 narcotics/cocaine overdose. Prognosis remains guarded at the moment given presentation of hypothermia, and unknown time down. EEG with diffuse slowing at 72 hours post-event, consistent with anoxic brain injury but no seizure. Given young age, will continue support for now. I would avoid benzos and narcotics if possible to avoid complicating his daily neuro exam. Neurology following. * Respiratory failure with hypoxemia 2/2 arrest, PTX, and likely aspiration. Vent day #9, but weaning well on minimal PS and repeatedly stable ABG ( including today). * PTX 2/2 CPR- resolved. Chest tube dc'd 06/06. Repeat CXR 06/07 without left PTX and resolution of mild RUL atelectasis * PNA- wbc continues to improve. currently treated with Zosyn day #8, but Tm 38.8. No evidence of infection on todays CXR. Loose stool but not rosalind diarrhea (low threshold to check Cdiff). UA sent. Recheck Bcx if continued fever. * EDWIN- 2/2 arrest. Cr still elevated but falling a bit last few days. Good urine output. Fluid balance still about 10L positive since admit. * Rhabdo 2/2 arrest- Resolved. CK peaked at 7198 and falling. Not a large factor for EDWIN * Transaminitis 2/2 shock liver. LFTs continue to fall. * Non-seizure activity on EEG. * Hypernatremia- Ns high but falling a bit with free water replacement. * Dispo: family starting to eval LTACH's. Stable for transfer once trach/PEG completed (tentative plan for 06/12). Plan: PEG 3/2 Continue vent support. May try TC weans tomorrow Complete 10d of Zosyn Repeat lasix, follow Na and Cr D/W RN, RT 06/09/16 16:14 Subjective: Trached, still paralyzed Objective: Vital Signs Temp Pulse Resp BP Pulse Ox 38.1 C 62 18 127/73 H 96 06/09/16 14:00 06/09/16 15:38 06/09/16 15:38 06/09/16 15:38 06/09/16 15:38 Laboratory Results 06/09/16 04:25 06/09/16 04:25 06/08/16 06/09/16 06/10/16 05:59 05:59 05:59 Intake Total 3953 2321 Output Total 1600 2000 Balance 2353 321 PT 14.9 SEC (12.0-15.0) 06/09/16 07:50 INR 1.17 (0.83-1.16) H 06/09/16 07:50 Physical Exam - Physical Exam General Appearance: No alert EENT: normal ENT inspection Neck: other (tracheostomy) Respiratory: lungs clear, normal breath sounds Cardiac/Chest: normal peripheral pulses, regular rate, rhythm, No edema Abdomen: normal bowel sounds, non-tender, soft Skin: normal color, warm/dry Extremities: normal inspection Neuro/Psych: No alert ICD10 Worksheet Patient Problems: Problems Problem Status Onset Cardiac arrest Acute
[2016-06-09] MEDS ORDERED: HEPARIN 5,000 UNIT/0.5 ML SYR SC ONE (18:00)
[2016-06-09] MEDS: CHLORHEXIDINE GLUCONATE 15 ML UDL PO SCH ×2 (18:36→20:43)
--- NOTE | 2016-06-09 18:59 | GOP ---
DATE OF OPERATION: 06/09/2016 SURGEON: Logan Leon MD SENIOR MANAGER ASSET PROTECTION: Diamond Doherty MD. ANESTHESIA: General endotracheal. ANESTHESIOLOGIST: Dr. Willis. PREOPERATIVE DIAGNOSIS: Respiratory failure, failure to wean from the vent. POSTOPERATIVE DIAGNOSIS: Respiratory failure, failure to wean from the vent. PROCEDURE PERFORMED: Open tracheostomy placement. FINDINGS: 8-0 cuffed nonfenestrated tracheostomy, successfully placed. SPECIMENS: None. ESTIMATED BLOOD LOSS: 5 mL. DESCRIPTION OF PROCEDURE: The patient's family was greeted in the intensive care unit. Briefed of all risks, benefits, and alternatives. Consent was signed. The patient was then escorted from the ICU to the operative suite, placed on the OR table in a supine position. After all anesthesia machines were on and functioning, [employer] time-out was performed. The patient's neck was then prepped and draped in typical sterile fashion. I commenced the procedure by making a 3 cm horizontal incision approximately 1 fingerbreadth above the sternal notch. I carried it through the platysma and divided the strap muscles in the midline. I carried my dissection down where the isthmus of the thyroid gland was identified and retracted cranially. Just deep to this, the trachea was identified. I dissected off and identified the 1st through 3rd tracheal rings and the 2nd and 3rd tracheal ring space at this site. I encircled the 3rd tracheal ring with 2-0 prolene on either side. I then made a tracheotomy in the midline in an H-type fashion through which I dilated. The endotracheal tube was then withdrawn through which I placed an 8.0 cuffed nonfenestrated tracheostomy. The balloon was blown up. It was then attached to the ventilator without any appreciable air leak and good ventilation. The skin on either side was closed with multiple interrupted 3-0 Prolene stitches. The trachea itself was attached to the skin with multiple 0 Prolene stitches. Dressings were appropriately placed. The patient was then placed back in his ICU bed and escorted back to the intensive care unit in stable condition. DRAINS: None. COUNTS: All counts reported as correct x2. /[id number]/MODL MTDD
[2016-06-09] MEDS: ACETAMINOPHEN 650 MG/20.3 ML UDCUP PO PRN (20:43)
[2016-06-09] MEDS ORDERED: ORAL BALANCE GEL TUBE PO PRN (21:09)
[2016-06-10] MEDS: PIPERACILLIN/TAZO 2.25 GM/DEX 50 ML IV SCH ×2 (00:16→06:14)
[2016-06-10 05:23] LABS: IONIZED CALCIUM 1.17 MMOL/L (1.12-1.30)
[2016-06-10 05:59] LABS: ANION GAP 6 mEq/L (8-16); CALCIUM 7.9 mg/dL (8.5-10.4); CARBON DIOXIDE 24 mEq/l (22-31); CHLORIDE 117 mEq/L (97-110); CREATININE 2.6 mg/dL (0.7-1.3); GLOMERULAR FILTRATION RATE 29; GLUCOSE 109 mg/dL (70-100); SODIUM 147 mEq/L (134-144)
[2016-06-10] MEDS: CHLORHEXIDINE GLUCONATE 15 ML UDL PO SCH ×2 (08:00→22:08)
[2016-06-10] MEDS: levETIRAcetam 500 MG in NS 100 ML IV SCH (08:00)
[2016-06-10] MEDS: PANTOPRAZOLE SODIUM 40 MG in NS 100 ML IV SCH (08:00)
[2016-06-10] MEDS: ACETAMINOPHEN 650 MG/20.3 ML UDCUP PO PRN (08:00)
--- NOTE | 2016-06-10 09:40 | SOAPPROG ---
SOAP Progress Note Assessment/Plan: Assessment/Plan: 30 Y M found down c overdose, s/p resuscitation, PTX, anoxic brain injury, respiratory failure, s/p tracheostomy, POD#1. Trach site clean, functional. Recommend protective dressing under trach collar piece to avoid skin ulceration. D/w'ed nursing. 06/10/16 09:36 Objective: Vital Signs Temp Pulse Resp BP Pulse Ox 38.1 C 46 L 22 H 132/69 H 100 06/10/16 08:00 06/10/16 08:00 06/10/16 08:00 06/10/16 08:00 06/10/16 08:00 Laboratory Results 06/09/16 04:25 06/10/16 05:00 06/09/16 06/10/16 06/11/16 05:59 05:59 05:59 Intake Total 2321 1579 Output Total 1999 1499 Balance 321 79 PT 14.9 SEC (12.0-15.0) 06/09/16 07:50 INR 1.17 (0.83-1.16) H 06/09/16 07:50 ICD10 Worksheet Patient Problems: Problems Problem Status Onset Cardiac arrest Acute
--- NOTE | 2016-06-10 09:49 | PDINTPN ---
Compliance Paralegal Progress Note Assessment/Plan: Assessment: 30 M with hx heroin and cocaine abuse found down for unknown period 05/30/16 and found pulseless and apneic. EMS resuscitated in field after 3 rounds of epi and CPR, plus narcan. Also intubated in field and started hypothermia protocol. Course complicated by rib fractures and PTX requiring chest tube per surgery. Initially hypothermic prior to protocol. Pressors started to maintain MAP>80 per protocol as well as paralytics for rigors. Has been stable last several days , with small incremental improvements most days. Neuro signed off 06/06. * cardiac arrest likely 2/2 narcotics/cocaine overdose. Prognosis remains guarded at the moment given presentation of hypothermia, and unknown time down. EEG with diffuse slowing at 72 hours post-event, consistent with anoxic brain injury but no seizure. Given young age, will continue support for now. I would avoid benzos and narcotics if possible to avoid complicating his daily neuro exam. Neurology following. * Respiratory failure with hypoxemia 2/2 arrest, PTX, and likely aspiration. On CPAP, tolerating well. * PTX 2/2 CPR- resolved. Chest tube dc'd 06/06. Repeat CXR 06/07 without left PTX and resolution of mild RUL atelectasis * PNA- wbc continues to improve. currently treated with Zosyn day #11, but Tm 38.3. Recheck Bcx if continued fever. U/A negative * EDWIN- 2/2 arrest. Cr still elevated but falling a bit last few days. Good urine output. Fluid balance still about 10L positive since admit. * Rhabdo 2/2 arrest- Resolved. CK peaked at 7198 and falling. Not a large factor for EDWIN * Transaminitis 2/2 shock liver. LFTs continue to fall. * Non-seizure activity on EEG. * Hypernatremia- Ns high, stable * Dispo: family starting to eval LTACH's. Stable for transfer once trach/PEG completed (tentative plan for 06/12). Plan: PEG 3/2 D/C Zosyn Trial of trach collar Blood Cx, CXR if still febrile after Zosyn stopped D/W RN, RT 06/10/16 09:50 06/10/16 09:51 Subjective: Unresponsive, trached. Objective: Vital Signs Temp Pulse Resp BP Pulse Ox 38.1 C 46 L 22 H 132/69 H 100 06/10/16 08:00 06/10/16 08:00 06/10/16 08:00 06/10/16 08:00 06/10/16 08:00 Laboratory Results 06/09/16 04:25 06/10/16 05:00 06/09/16 06/10/16 06/11/16 05:59 05:59 05:59 Intake Total 2320 1579 Output Total 2000 1500 Balance 321 79 PT 14.9 SEC (12.0-15.0) 06/09/16 07:50 INR 1.17 (0.83-1.16) H 06/09/16 07:50 Physical Exam - Physical Exam General Appearance: alert, no apparent distress EENT: normal ENT inspection Neck: normal inspection, other (trach OK) Respiratory: lungs clear, normal breath sounds Cardiac/Chest: regular rate, rhythm, No edema Abdomen: normal bowel sounds, non-tender, soft Skin: normal color, warm/dry Extremities: normal range of motion, non-tender Neuro/Psych: No alert, No normal mood/affect ICD10 Worksheet Patient Problems: Problems Problem Status Onset Cardiac arrest Acute
[2016-06-10] MEDS: HEPARIN 5,000 UNIT/0.5 ML SYR SC SCH ×3 (10:54→22:08)
[2016-06-10] MEDS ORDERED: ACETAMINOPHEN 650 MG/20.3 ML UDCUP TUBE PRN (14:25)
--- NOTE | 2016-06-10 14:34 | HOSPPROG ---
Hospitalist Progress Note Assessment/Plan: # anoxic brain injury - improvement seems to have plateaued; cont aggressive support given his young age - s/p trach yesterday, PEG tomorrow # heroin/cocaine overdose # acute resp failure s/p intubation - continue vent support # pneumothorax, traumatic - chest tube removed # volume status - close to euvolemia # acute kidney injury, making urine, electrolytes okay - slowly improving # fever/mild WBC elevation - no evidence of infection # aspiration pneumonia - #10 - dc'd today # mild rhabdomyolysis # mild troponin elevation # shock liver, coagulopathy # nutrition: Tube feeds # hypernatremia - better today - cont free water flushes - slight increase today # FCFT # SQH ## 35 minutes of floor critical care time Subjective: s/p trach yesterday Objective: Vital Signs Temp Pulse Resp BP Pulse Ox 37.2 C 47 L 16 132/76 H 100 06/10/16 14:00 06/10/16 14:00 06/10/16 14:00 06/10/16 14:00 06/10/16 14:00 Laboratory Results 06/09/16 04:25 06/10/16 05:00 06/09/16 06/10/16 06/11/16 05:59 05:59 05:59 Intake Total 2321 1579 Output Total 1999 1500 350 Balance 321 79 -350 PT 14.9 SEC (12.0-15.0) 06/09/16 07:50 INR 1.17 (0.83-1.16) H 06/09/16 07:50 not responsive; trach in place, on trach collar ICD10 Worksheet Patient Problems: Problems Problem Status Onset Cardiac arrest Acute
[2016-06-10] MEDS ORDERED: levETIRAcetam 500 MG/5 ML UDCUP TUBE SCH (21:00)
[2016-06-10] MEDS: FAMOTIDINE 20 MG TAB TUBE SCH (22:08)
[2016-06-11 06:41] LABS: ANION GAP 9 mEq/L (8-16); CALCIUM 8.3 mg/dL (8.5-10.4); CARBON DIOXIDE 22 mEq/l (22-31); CHLORIDE 118 mEq/L (97-110); CREATININE 2.2 mg/dL (0.7-1.3); GLOMERULAR FILTRATION RATE 36; GLUCOSE 97 mg/dL (70-100); POTASSIUM 3.8 mEq/L (3.5-5.2); SODIUM 149 mEq/L (134-144)
[2016-06-11] MEDS ORDERED: MIDAZOLAM 2 MG/2 ML VIAL ONE (07:13)
[2016-06-11] MEDS ORDERED: fentaNYL 100 MCG/2 ML INJ ONE (07:13)
[2016-06-11] MEDS ORDERED: fentaNYL 100 MCG/2 ML INJ IVP ONE (07:30)
[2016-06-11] MEDS ORDERED: MIDAZOLAM 2 MG/2 ML VIAL IVP ONE ×2 (07:30→08:30)
[2016-06-11] MEDS ORDERED: SUCCINYLCHOLINE CHLORIDE 200 MG/10 ML VIAL IVP ONE (07:33)
[2016-06-11] MEDS: FAMOTIDINE 20 MG TAB TUBE SCH (08:14)
[2016-06-11] MEDS: CHLORHEXIDINE GLUCONATE 15 ML UDL PO SCH (08:23)
--- NOTE | 2016-06-11 08:53 | POSTOPPROG ---
Post Op Note Date of Operation: 06/11/16 Surgeon: Logan Leon [employer] Drilling Machine Operator: Diamond Doherty MD Anesthesia: IV Sedation Pre-op Diagnosis: need for enteral feeds Post-op Diagnosis: same Procedure: PEG tube placement Findings: 20 Fr PEG successfully placed at 2cm at the skin Inf/Abcess present in the surg proc area at time of surgery?: No EBL: Minimal Drains: Other (20 Fr PEG)
[2016-06-11] MEDS ORDERED: LANSOPRAZOLE SUSP 30MG/10ML UDSYR (Adult) TUBE SCH (09:00)
--- NOTE | 2016-06-11 09:00 | SOAPPROG ---
SOAP Progress Note Assessment/Plan: Assessment/Plan 30yo M s/p traumatic L PTX s/p chest compressions - trach site c/d/i and doing well on trach collar. Successfully tolerated PEG placement this AM. Would keep PEG capped for 24hrs, can start TFs via tomorrow. OK for Tx to LTAC from surgery standpoint. 06/06/16 12:10 06/11/16 08:59 Subjective: On trach collar, not following commands Objective: Vital Signs Temp Pulse Resp BP Pulse Ox 38.7 C H 69 20 139/74 H 98 06/11/16 08:00 06/11/16 08:00 06/11/16 08:00 06/11/16 08:00 06/11/16 08:00 Laboratory Results 06/09/16 04:25 06/11/16 06:10 06/10/16 06/11/16 06/12/16 05:59 05:59 05:59 Intake Total 1579 2026 Output Total 1500 1450 Balance 79 576 PT 14.9 SEC (12.0-15.0) 06/09/16 07:50 INR 1.17 (0.83-1.16) H 06/09/16 07:50 ICD10 Worksheet Patient Problems: Problems Problem Status Onset Cardiac arrest Acute
--- NOTE | 2016-06-11 09:20 | GOP ---
DATE OF OPERATION: 06/11/2016 SURGEON: Logan Leon MD PURCHASING SUPERVISOR: Diamond Doherty MD. ANESTHESIA: IV sedation. PREOPERATIVE DIAGNOSIS: 1. Anoxic brain injury. 2. Need for enteral access. POSTOPERATIVE DIAGNOSIS: 1. Anoxic brain injury. 2. Need for enteral access. PROCEDURE PERFORMED: Bedside PEG tube placement. FINDINGS: Successful transillumination and PEG tube placement via guidewire technique, a 20-Tajik PEG tube successfully placed, flange 2 cm at the skin. ESTIMATED BLOOD LOSS: 2 cc. DESCRIPTION OF PROCEDURE: The patient's family was greeted in the intensive care unit. After explaining the risks, benefits, and alternatives, the consent was signed. After doing so, the patient was appropriately sedated and paralyzed after which a bite block was placed. The gastroscope was successfully placed down through the patient's esophagus into the stomach. The anterior stomach wall was then transilluminated, and an area on the anterior abdominal wall was identified. The abdominal wall was then prepped and draped in typical sterile fashion. Using the guidewire technique, we successfully placed the needle through the anterior abdominal wall into the stomach through which our guidewire was placed. The guidewire was successfully snared with the endoscope and brought back through the patient's mouth. The guidewire was then attached to our PEG tube. PEG tube was then successfully brought down through the patient's esophagus and through the anterior abdominal wall at the stick site without issue. It was then trimmed appropriately, and the anterior flange was placed 2 cm at the skin. The patient tolerated the procedure well with no intraprocedural complications. DRAINS: A 20-Tajik PEG tube, 2 cm at the skin. COMPLICATIONS: None. COUNTS: All counts reported as correct x2. /[id number]/MODL MTDD
--- NOTE | 2016-06-11 09:25 | PDINTPN ---
Director Prospect Progress Note Assessment/Plan: Assessment: 30 M with hx heroin and cocaine abuse found down for unknown period 05/30/16 and found pulseless and apneic. EMS resuscitated in field after 3 rounds of epi and CPR, plus narcan. Also intubated in field and started hypothermia protocol. Course complicated by rib fractures and PTX requiring chest tube per surgery. Initially hypothermic prior to protocol. Pressors started to maintain MAP>80 per protocol as well as paralytics for rigors. Has been stable last several days , with small incremental improvements most days. Neuro signed off 06/06. * cardiac arrest likely 2/2 narcotics/cocaine overdose. Prognosis remains guarded at the moment given presentation of hypothermia, and unknown time down. EEG with diffuse slowing at 72 hours post-event, consistent with anoxic brain injury but no seizure. Given young age, will continue support for now. I would avoid benzos and narcotics if possible to avoid complicating his daily neuro exam. Neurology following. * Respiratory failure with hypoxemia 2/2 arrest, PTX, and likely aspiration. On trach collar, tolerating well. * PTX 2/2 CPR- resolved. Chest tube dc'd 06/06. Repeat CXR 06/07 without left PTX and resolution of mild RUL atelectasis * PNA- S/P 1o days of Zosyn. Lungs clear on CXR today. Continues to have intermittent fevers. * EDWIN- 2/2 arrest. Cr still elevated but falling steadily last few days. Good urine output. Fluid balance still about several liters positive since admit. Na elevated and climbing, euvolemic * Rhabdo 2/2 arrest- Resolved. CK peaked at 7198 and falling. Not a large factor for EDWIN * Non-seizure activity on EEG. * Dispo: family has chosen LTACH. Stable for transfer Plan: PEG just placed, start TF tomorrow Add D5W util able to start TF. Continue trach collar OK to Tx to LTACH D/W RN, RT 06/11/16 09:26 06/11/16 09:30 Subjective: Trached, unresponsive Objective: Vital Signs Temp Pulse Resp BP Pulse Ox 38.7 C H 69 20 139/74 H 98 06/11/16 08:00 06/11/16 08:00 06/11/16 08:00 06/11/16 08:00 06/11/16 08:00 Laboratory Results 06/09/16 04:25 06/11/16 06:10 06/10/16 06/11/16 06/12/16 05:59 05:59 05:59 Intake Total 1579 2026 Output Total 1500 1450 Balance 79 576 PT 14.9 SEC (12.0-15.0) 06/09/16 07:50 INR 1.17 (0.83-1.16) H 06/09/16 07:50 CXR: Lungs clear. Images reviewed. Physical Exam - Physical Exam General Appearance: alert, no apparent distress EENT: normal ENT inspection Neck: normal inspection, other (trach OK) Respiratory: lungs clear, normal breath sounds Cardiac/Chest: regular rate, rhythm, No edema Abdomen: normal bowel sounds, non-tender, soft Skin: normal color, warm/dry Extremities: normal inspection Neuro/Psych: alert, normal mood/affect, oriented x 3 ICD10 Worksheet Patient Problems: Problems Problem Status Onset Cardiac arrest Acute
[2016-06-11] MEDS ORDERED: D5W 1,000 ML IV SCH (09:30)
[2016-06-11 10:21] VITALS: TEMP 99.4
--- NOTE | 2016-06-11 10:56 | PDIAF ---
- Diagnosis Diagnosis: anoxic brain injury Code Status: Full Code - Medication Management Discharge Medications: Medications to Continue on Transfer Acetaminophen [Tylenol 650/20.3ML Oral Liq (*)] 650 mg TUBE Q6 PRN #0 udcup 05/29 [Last Taken Unknown] Famotidine [Pepcid 20 MG (*)] 20 mg TUBE BID #0 tab 06/11/16 [Last Taken Unknown ] Heparin [Heparin SC 5000 unit/0.5 ml (*)] 5,000 unit SC Q8HRS #0 syr 06/11/16 [ Last Taken Unknown] Discharge Medications: Refer to the Discharge Home Medication list for PRN reason. - Orders Tube feeding: Continue Jevity 1.5 at goal rate 50ml/hr. Wound Care Instructions: Startb tube feeds through PEG tomorrow / - Follow Up Care Current Providers and Referrals: Patient,NotPresent [Primary Care Provider] - As per Instructions
--- NOTE | 2016-06-11 11:45 | GDS ---
DISCHARGE DIAGNOSES: 1. Anoxic brain injury due to heroin overdose. 2. Acute respiratory failure. 3. Aspiration pneumonia. 4. Left-sided pneumothorax secondary to cardiopulmonary resuscitation. 5. Acute kidney injury. 6. Persistent mild fever. 7. Mild rhabdomyolysis. 8. Mild troponin elevation. 9. Shock liver. 10. Hypernatremia. HISTORY: This is a 30-year-old male with no past medical history. He was found by his friends juan alcala in cardiac arrest. CPR was instituted in the field and was brought back after 3 rounds of e pinephrine. HOSPITAL COURSE: 1. Anoxic brain injury. The patient underwent HACA protocol, underwent cooling protocol. Afterwar ds, the patient's neuro status consisted of pupillary reactivity and some posturing with pain. He d oes have an intact respiratory drive. His improvement has, however, plateaued at this time. He rec eived a tracheostomy and PEG tube placement then he will be going to long-term acute care. 2. Acute respiratory failure. Patient was intubated. He currently has a tracheostomy. He has bee n doing well on trach collar without much ventilatory support. 3. Traumatic pneumothorax. His chest tube was removed. 4. Aspiration pneumonia. The patient finished 10 days of Zosyn. 5. Acute renal failure. Creatinine has plateaued around the 3 range and is now coming down, and di [facility] creatinine is 2.2. He is making good urine. 6. Hyponatremia. Patient's free water was increased. 7. Persistent low-grade fevers. Cultures have been negative. We will continue to watch this. 8. Nutrition. PEG tube placement was placed today. This can be used tomorrow and NG tube can be r emoved. DISPOSITION: Patient will be transferred to acute care facility today. /[id number]/MODL
[2016-06-11 12:20] VITALS: BP 144/84; PULSE 68; RESP 24; O2SAT 99
[2016-06-11] MEDS ORDERED: HEPARIN 5,000 UNIT/0.5 ML SYR SC SCH (14:00)
== END 2016-06-11 12:40 | DRG 4 ==
LOC: EDUNIT# → F2N 15:50
PROVIDERS: ADMIT Internal Medicine; ATTEND Internal Medicine
PROC: 5A1955Z Respiratory Ventilation, Greater than 96 Consecutive Hours (ICD-10-PCS; 2016-05-30)
PROC: 0B9P00Z Drainage of Left Pleura with Drainage Device, Open Approach (ICD-10-PCS; 2016-05-31)
PROC: 0B110F4 Bypass Trachea to Cutaneous with Tracheostomy Device, Open Approach (ICD-10-PCS; principal; 2016-06-09 14:45)
PROC: 0DH63UZ Insertion of Feeding Device into Stomach, Percutaneous Approach (ICD-10-PCS; 2016-06-11)
DX: T40.1X4A Poisoning by heroin, undetermined, initial encounter (principal); I46.8 Cardiac arrest due to other underlying condition; J96.00 Acute respiratory failure, unspecified whether with hypoxia or hypercapnia; J69.0 Pneumonitis due to inhalation of food and vomit; K72.00 Acute and subacute hepatic failure without coma; G93.1 Anoxic brain damage, not elsewhere classified; S27.0XXA Traumatic pneumothorax, initial encounter; N17.9 Acute kidney failure, unspecified; M62.82 Rhabdomyolysis; E87.0 Hyperosmolality and hypernatremia; E87.2 Acidosis; F14.90 Cocaine use, unspecified, uncomplicated
CPT/HCPCS: 80307; 82947-QW; 96374; G0480; J0330; J0610; J1265; J1815; J1953; J2250; J2310; J2543; J2704; J3010; J3475